=== PATIENT | female | born 1985 | race Caucasian/White ===

== ENCOUNTER 2017-01-23 13:41 | Emergency (ER) | payer SELFPAY ==
[~2017-01-23] VITALS: Ht 172.7 cm; Wt 81.7 kg
[~2017-01-23 13:41] MED LIST: ACHD5005 PO; ALBU17AE3 IH; ALBU8.5H2 IH; AZIT-21 PO; BENZ56AE TP; CEPH500C PO; CLIN-62 PO; CLIN300C3 PO; CODE-54 PO; CYCL10TA9 PO; DCS100C PO; FAMO20TA5 PO; FRS325T PO; HYDR1TAB PO; Ibuprofen PO; METH4TAB PO; NAPR-243 PO; ORPH100T PO; OXYC-12 PO; PRD20T PO; PREN-93 PO; PREN1TAB39 PO; RANI75TA30 PO; SULF-222 PO; TOPI50TA20; TRAM1TAB7 PO; TRAM50TA2 PO
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
[2017-01-23 14:00] LABS: MEAN PLATELET VOLUME 10.5 FL (7.4-10.4); RED BLOOD COUNT 4.32 10^6/uL (4.35-5.85); RED CELL DISTRIBUTION WIDTH 12.9 % (10.0-14.5)
[2017-01-23] MEDS ORDERED: CATHETER FLUSH 10 ML SYR IV PRN (14:00)
[2017-01-23] MEDS ORDERED: IOHEXOL 350 MG/ML 100 ML (OMNIPAQUE 350) VIAL IV ONE (14:00)
[2017-01-23] MEDS ORDERED: NS 100 ML (IVPB) BAG IV ONE (14:00)
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
[2017-01-23 14:13] LABS: ALANINE AMINOTRANSFERASE 14 U/L (0-55); ALBUMIN 3.9 GM/DL (3.2-4.5); ALCOHOL 11 MG/DL (<10); ANION GAP 8 MMOL/L (5-14); ASPARTATE AMINO TRANSFERASE 19 U/L (5-34); BILIRUBIN,DIRECT 0.1 MG/DL (0.0-0.3); BILIRUBIN,INDIRECT 0.1 MG/DL; BILIRUBIN,TOTAL 0.2 MG/DL (0.1-1.0); BLOOD UREA NITROGEN 9 MG/DL (7-18); BUN/CREATININE RATIO 12; CALCIUM 9.1 MG/DL (8.5-10.1); CARBON DIOXIDE 26 MMOL/L (21-32); CHLORIDE 105 MMOL/L (98-107); CREATININE SERUM 0.77 MG/DL (0.60-1.30); GFR ESTIMATED > 60; GLUCOSE 95 MG/DL (70-105); POTASSIUM 3.7 MMOL/L (3.6-5.0); SODIUM 139 MMOL/L (135-145); TOTAL PROTEIN 6.9 GM/DL (6.4-8.2)
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
[2017-01-23] MEDS ORDERED: fentaNYL INJECTION 100 MCG/2 ML AMP IVP STA (15:20)
[2017-01-23] MEDS ORDERED: KETOROLAC 30 MG/ML VIAL IVP STA (15:20)
[2017-01-23 15:49] LABS: BILIRUBIN,URINE NEGATIVE (NEGATIVE); KETONES,URINE NEGATIVE (NEGATIVE); LEUKOCYTE ESTERASE ,URINE 2+ (NEGATIVE); NITRITE,URINE NEGATIVE (NEGATIVE); PH,URINE 8 (5-9); PROTEIN,URINE NEGATIVE (NEGATIVE); UROBILINOGEN,URINE NORMAL (NORMAL)
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
[2017-01-23 15:57] LABS: SQUAMOUS EPITHELIAL CELL,UR 0-2 /HPF
[2017-01-23] MEDS ORDERED: HYDR-3816 PO (16:07)
[2017-01-23] MEDS ORDERED: CYCL10TA9 PO (16:07)
[2017-01-23 16:40] VITALS: BP 136/90
== END 2017-01-23 16:40 | disposition home or self-care (01) ==
LOC: EDUNIT# 13:43 → ER 13:44
DX: S06.0X1A Concussion with loss of consciousness of 30 minutes or less, initial encounter (principal); S16.1XXA Strain of muscle, fascia and tendon at neck level, initial encounter; J45.909 Unspecified asthma, uncomplicated; G40.909 Epilepsy, unspecified, not intractable, without status epilepticus; F17.210 Nicotine dependence, cigarettes, uncomplicated; Z82.49 Family history of ischemic heart disease and other diseases of the circulatory system; V48.5XXA Car driver injured in noncollision transport accident in traffic accident, initial encounter
CPT/HCPCS: 36415; 70450; 71010; 71260; 72125; 72128; 72131; 72170; 74177; 80048; 80076; 80320; 81000; 84703; 85027; 86850; 86900; 86901; 93041

== ENCOUNTER 2018-09-04 07:21 | Day surgery (SDC) | payer MEDICAID, OTHER ==
[2018-09-04] VITALS (12 sets, daily range): BP systolic 96–119; BP diastolic 43–76
[~2018-09-04] VITALS: Ht 172.7 cm; Wt 99.8 kg
[~2018-09-04 07:21] MED LIST changes: +HYDR-34 PO
--- OUTSIDE RECORDS SUMMARY | 2018-09-04 07:24 | XMS REPORT | Clinical Summary ---
Author Author [facility] Organization [facility] Address Unknown Phone Unavailable Care Team Providers Care [employer] Instructor Name Role Phone PCP Unavailable Allergies Not on File Current Medications Not on file Active Problems Not on file Social History Tobacco Use Types Packs/Day Years Used Date Never Assessed Sex Assigned at Date Recorded Not on file Last Filed Vital Signs Not on file Plan of Treatment Not on file Results Not on filefrom Last 3 Months
--- OUTSIDE RECORDS SUMMARY | 2018-09-04 07:25 | XMS REPORT ---
Author Author SIOMARA HOLGUIN [facility] Address [address] [place] [address] Care Team Providers Care Event Executive Name Role Phone SIOMARA HOLGUIN Unavailable PROBLEMS Type Condition ICD9-CM Code SZV02-IE Code Onset Dates Condition Status SNOMED Code Problem Other chronic pain G89.29 Active 52550891 Problem Pain in right knee M25.561 Active 29977260 ALLERGIES Substance Reaction Event Type Date Status Penicillin V Potassium anaphylaxis Drug Allergy Mar, Active ENCOUNTERS Encounter Location Date Diagnosis [facility] [id number] [place] [phone] Mar, [facility] [id number] [place] [phone] Mar, Cough R05 and Pneumonia J18.9 [facility] [address] [id number] [place] [address] Feb, [facility] [id number] [place] [phone] Feb, [facility] [address], [place] [address] Feb, Right knee pain, unspecified chronicity M25.561 [facility] [address] [id number] [place] [address] Feb, Pain in right knee M25.[id number] [place] [id number] Nov, Visit for TB skin test Z11.1 and Screening for tuberculosis Z11.1 [facility] [id number] [id number] Oct, [facility] [id number] [address] August, Gastroenteritis K52.9 [facility] [id number] [place] [phone] Jun, Pneumonia of right upper lobe due to infectious organism J18.1 [facility] [id number] [place] [address] Jun, Bronchitis J40 [facility] [id number] [place] [phone] May, Sore throat J02.9 [facility] [id number] [place] [id number] Mar, LUQ abdominal pain R10.12 ; Nausea R11.0 and H. pylori infection A04.8 [facility] [id number] [place] [phone] 14 Jul, 2014 [facility] [id number] [place] [phone] Jul, [facility] [id number] [place] [phone] Apr, [facility] [id number] [place] [phone] Apr, [facility] [id number] [place] [phone] Apr, [facility] [id number] [place] [phone] Apr, [facility] [id number] [id number] Mar, [facility] [id number] [place] [phone] Mar, [facility] [id number] [place] [phone] Mar, [facility] [id number] [place] [phone] Mar, [facility] [id number] [address] Feb, [facility] [address], [place] [address] Feb, [facility] [id number] [address] Feb, [id number] [id number] Feb, [facility] [id number], [place] [address] Jan, [facility] [address], [place] [address] Jan, [facility] [address] [place] [address] Jan, [facility] [address], [place] [address] Jan, [facility] [id number] [address] Nov, [facility] [address], [place] [address] Nov, [facility] [id number] [address] Jul, [facility] [id number], [place] [address] Jul, [facility] [id number], [place] [address] Mar, [facility] [address], [place] [address] Jul, IMMUNIZATIONS No Known Immunizations SOCIAL HISTORY Never Assessed REASON FOR VISIT Cold symptoms x1 month; cough, chest cold; had double pneumonia 05/2017, so brianne rned about these symptoms - VALDEZ Mccall PLAN OF CARE Activity Details Follow Up if not improving with PCP or reg follow up Reason: VITAL SIGNS Height 69 in 2018-03-17 Weight 252.4 lbs 2018-03-17 Temperature 97.7 degrees Fahrenheit 2018-03-17 Heart Rate 84 bpm 2018-03-17 Respiratory Rate 18 2018-03-17 Oximetry on room air:97 % 2018-03-17 BMI 37.27 kg/m2 2018-03-17 Blood pressure systolic 138 mmHg 2018-03-17 Blood pressure diastolic 90 mmHg 2018-03-17 MEDICATIONS Medication Instructions Dosage Frequency Start Date End Date Duration Status Tylenol 325 MG Orally every 4 hrs 1 tablet as needed 4h Active PredniSONE 20 MG Orally Once a day 2 tablet 24h Mar, 5 days Active Levaquin 750 MG Orally Once a day 1 tablet 24h Mar, 10 day(s) Active Albuterol Sulfate HFA 108 (90 Base) MCG/ACT Inhalation every 4-6 hours 2 puffs as needed 30 days Active Ibuprofen 200 MG Orally Three times a day 1 tablet with food or milk as needed 8h Active RESULTS Name Result Date Reference Range Xray : Chest 2 View (IN HOUSE) 2018-03-17 PROCEDURES Procedure Date Ordered Result Body Site X-RAY EXAM CHEST 2 VIEWS Mar 17, 2018 INSTRUCTIONS MEDICATIONS ADMINISTERED No Known Medications MEDICAL (GENERAL) HISTORY Type Description Date Medical History asthma Medical History Bipolar disorder, unspecified Medical History Unspecified epilepsy without mention of intractable epilepsy Surgical History tubal ligation Surgical History diagnostic lap Hospitalization History pneumonia 05/2017
--- OUTSIDE RECORDS SUMMARY | 2018-09-04 07:25 | XMS REPORT ---
Author Author SIOMARA HOLGUIN [facility] Address [address] [place] [address] Care Team Providers Care Manpower Development Manager Name Role Phone SIOMARA HOLGUIN Unavailable PROBLEMS Type Condition ICD9-CM Code GBC51-TV Code Onset Dates Condition Status SNOMED Code Problem Other chronic pain G89.29 Active 05406554 Problem Pain in right knee M25.561 Active 90988381 ALLERGIES Substance Reaction Event Type Date Status Penicillin V Potassium anaphylaxis Drug Allergy Mar, Active ENCOUNTERS Encounter Location Date Diagnosis [facility] [id number] [place] [address] Mar, [facility] [id number] [place] [address] Mar, Cough R05 [facility] [id number] [place] [address] 04 Mar, 2018 Cough R05 and Pneumonia J18.9 [facility] [address] [id number] [place] [address] Feb, [facility] [id number] [place] [address] 15 Feb, 2018 [facility] [id number] [place] [address] 09 Feb, 2018 Right knee pain, unspecified chronicity M25.561 [facility] [address] [id number] [place] [address] 07 Feb, 2018 Pain in right knee M25.561 [id number] [id number] Nov, Visit for TB skin test Z11.1 and Screening for tuberculosis Z11.1 [address] [id number] [id number] Oct, [facility] [id number] [place] [address] August, Gastroenteritis K52.9 [facility] [address] [address] Jun, Pneumonia of right upper lobe due to infectious organism J18.1 [facility] [address] [address] Jun, Bronchitis J40 [facility] [id number] [place] [address] May, Sore throat J02.9 [facility] [id number], [place] [id number] Mar, LUQ abdominal pain R10.12 ; Nausea R11.0 and H. pylori infection A04.8 [facility] [address] [address] Jul, [facility] [id number] [address] Jul, [facility] [id number] [address] Apr, [facility] [id number] [address] Apr, [facility] [id number] [address] Apr, [facility] [address] [address] Apr, [facility] [id number], [place] [id number] Mar, [facility] [id number] [address] Mar, [facility] [address] [id number] [address] Mar, [facility] [address] [facility] [id number] [place] [address] Mar, [facility] [address] [id number] [address] Feb, [facility] [address] [id number] [address] Feb, [facility] [address] [id number] [address] Feb, [facility] [address] [id number][place] [id number] Feb, [facility] [id number] [address] Jan, [facility] [id number] [address] Jan, [facility] [id number] [address] Jan, [facility] [address] [id number] [address] Jan, [facility] [address] [address] Nov, [facility] [address] [id number] [address] Nov, [facility] [address] [id number] [address] Jul, [facility] [address] [facility] [id number] [address] Jul, [facility] [address] [id number] [address] Mar, [facility] [address] [id number] [address] Jul, IMMUNIZATIONS No Known Immunizations SOCIAL HISTORY Never Assessed REASON FOR VISIT Shortness of breath/cough; was diagnosed with pneumonia 03/17/18, pt is out of ab x and steriods but doesn't feel better - VALDEZ Mccall PLAN OF CARE Activity Details Follow Up prn Reason: VITAL SIGNS Height 69 in 2018-03-25 Weight 249.2 lbs 2018-03-25 Temperature 97.3 degrees Fahrenheit 2018-03-25 Heart Rate 96 bpm 2018-03-25 Respiratory Rate 28 2018-03-25 Oximetry on room air:98 % 2018-03-25 BMI 36.80 kg/m2 2018-03-25 Blood pressure systolic 110 mmHg 2018-03-25 Blood pressure diastolic 70 mmHg 2018-03-25 MEDICATIONS Medication Instructions Dosage Frequency Start Date End Date Duration Status Tessalon Perles 100 MG Orally Three times a day 1 capsule as needed 8h Mar, 5 days Active Ibuprofen 200 MG Orally Three times a day 1 tablet with food or milk as needed 8h Active Albuterol Sulfate HFA 108 (90 Base) MCG/ACT Inhalation every 4-6 hours 2 puffs as needed 30 days Active Tylenol 325 MG Orally every 4 hrs 1 tablet as needed 4h Active RESULTS No Results PROCEDURES No Known procedures INSTRUCTIONS MEDICATIONS ADMINISTERED No Known Medications MEDICAL (GENERAL) HISTORY Type Description Date Medical History asthma Medical History Bipolar disorder, unspecified Medical History Unspecified epilepsy without mention of intractable epilepsy Surgical History tubal ligation Surgical History diagnostic lap Hospitalization History pneumonia 05/2017
--- OUTSIDE RECORDS SUMMARY | 2018-09-04 07:25 | XMS REPORT ---
Author Author CARLIN BARRIOS [facility] Address [address] [place] [address] Care Team Providers Care Robotics Systems Engineer Name Role Phone TOMCLEMENTECARLIN MAZARIEGOS Unavailable PROBLEMS Unknown Problems ALLERGIES No Information ENCOUNTERS Encounter Location Date Diagnosis [facility] [id number] [place] [id number] Nov, Visit for TB skin test Z11.1 and Screening for tuberculosis Z11.1 [facility] [id number] [place] [id number] Oct, [facility] [address] [address] August, Gastroenteritis K52.9 [facility] [address] [place] [address] Jun, Pneumonia of right upper lobe due to infectious organism J18.1 [facility] [address] [place] [id number] [place] [address] Jun, Bronchitis J40 [facility] [address] [place] [id number] [place] [address] May, Sore throat J02.9 [facility] [id number] [place] [id number] Mar, LUQ abdominal pain R10.12 ; Nausea R11.0 and H. pylori infection A04.8 [facility] [address] [address] Jul, [facility] [address] [address] Jul, [facility] [address] [place] [address] Apr, [facility] [address] [facility] [id number], [place] [address] Apr, [facility] [place] [facility] [address] [facility] [id number], [place] [address] Apr, [facility] [address] [facility] [id number], [place] [address] Apr, [facility] [address] [facility] [id number][place] [id number] Mar, [facility] [place] [facility] [address] [facility] [id number], [place] [address] Mar, [facility] [place] [facility] [address] [facility] [id number], [place] [address] Mar, [facility] [place] [facility] [address] [id number], [place] [address] Mar, [facility] [place] [facility] [address] [facility] [id number], [place] [address] Feb, [facility] [place] [facility] [address] [id number], [place] [address] Feb, [facility] [place] [facility] [address] [facility] [id number], [place] [address] Feb, [facility] [address] [id number][place] [address] Feb, [facility] [place] [facility] [address] [facility] [id number], [place] [address] Jan, [facility] [place] [facility] [address] [id number], [place] [address] Jan, [facility] [place] [facility] [address] [facility] [id number], [place] [address] Jan, [facility] [place] [facility] [address] [facility] [id number], [place] [address] Jan, [facility] [place] [facility] [address] [facility] [id number], [place] [address] Nov, [facility] [address] [id number], [place] [address] Nov, [facility] [address]00565100[place], [place] [address] Jul, [facility] [address] [id number], [place] [address] Jul, [facility] [address] [id number], [place] [address] Mar, [facility] [address] [id number], [place] [address] Jul, IMMUNIZATIONS No Known Immunizations SOCIAL HISTORY Never Assessed REASON FOR VISIT Phone Call--ADaviedRN PLAN OF CARE VITAL SIGNS MEDICATIONS Unknown Medications RESULTS No Results PROCEDURES No Known procedures INSTRUCTIONS MEDICATIONS ADMINISTERED No Known Medications MEDICAL (GENERAL) HISTORY Type Description Date Medical History asthma Medical History Bipolar disorder, unspecified Medical History Unspecified epilepsy without mention of intractable epilepsy Surgical History tubal ligation Surgical History diagnostic lap Hospitalization History pneumonia
--- OUTSIDE RECORDS SUMMARY | 2018-09-04 07:25 | XMS REPORT ---
Author Author Migration, Doctor Organization [facility] Address Unknown Phone Unavailable Care Team Providers Care Inlayer Silver Name Role Phone Migration, Doctor Unavailable Unavailable PROBLEMS Type Condition ICD9-CM Code [id number] Code Onset Dates Condition Status SNOMED Code Problem Pain in right knee M25.561 Active 34486981 ALLERGIES No Information ENCOUNTERS Encounter Location Date Diagnosis [facility] [id number] [place] [address] Apr, Allergic conjunctivitis of both eyes H10.13 [id number] [place] [address] Apr, Nausea & vomiting R11.2 [id number] [place] [address] Apr, [id number] [place] [address] Apr, Left upper quadrant pain R10.12 and Near syncope R55 [facility] [id number] [place] [address] Mar, Cough R05 [facility] [id number] [place] [address] 04 Mar, 2018 Cough R05 and Pneumonia J18.9 [facility] [address] [id number] [place] [address] Feb, [id number] [place] [address] Feb, [facility] [address] [place] [address] 09 Feb, 2018 Right knee pain, unspecified chronicity M25.561 [facility] MADISYN [address] [id number] [place] [address] Feb, Pain in right knee M25.561 [facility] [id number], [place] [id number] Nov, Visit for TB skin test Z11.1 and Screening for tuberculosis Z11.1 [facility] [id number] [id number] Oct, [facility] [id number] [place] [address] August, Gastroenteritis K52.9 [facility] [id number] [place] [address] Jun, Pneumonia of right upper lobe due to infectious organism J18.1 [facility] [id number] [place] [address] Jun, Bronchitis J40 [facility] [address] [place] [address] [place] [address] May, Sore throat J02.9 [address] [id number] Mar, LUQ abdominal pain R10.12 ; Nausea R11.0 and H. pylori infection A04.8 [facility] [address] [place] [address] Jul, [facility] [id number] [place] [address] Jul, [facility] [id number] [place] [address] Apr, [facility] [id number] [place] [address] Apr, [facility] [id number] [place] [address] Apr, [facility] [id number] [place] [address] Apr, [address] [id number] [id number] 05 Mar, 2014 [facility] [place] [facility] [address] [id number] [place] [address] Mar, [facility] [place] [facility] [address] [facility] [id number] [place] [address] Mar, [facility] [place] [facility] [address] [facility] [id number] [place] [address] Mar, [facility] [place] [facility] [address] [facility] [id number] [place] [address] Feb, [facility] [place] [facility] [address] [id number] [place] [address] Feb, [facility] [place] [facility] [address] [facility] [id number] [place] [address] Feb, [facility] [address] W [facility] [id number][place] [id number] Feb, [facility] [place] [facility] [address] [id number] [address] Jan, [facility] [place] [facility] [address] [id number] [place] [address] Jan, [facility] [place] [facility] [address] [id number] [place] [address] Jan, [facility] [place] [facility] [address] [id number], [place] [address] Jan, [facility] [place] [facility] [address] [id number], [place] [address] Nov, [facility] [place] [facility] [address] [id number] [place] [address] Nov, [facility] [place] [facility] [address] [facility] [id number] [place] [address] Jul, [facility] [place] [facility] [address] [id number] [place] [address] Jul, [facility] [place] [facility] [address] [facility] [id number] [place] [address] Mar, [facility] [address] [facility] [id number] [place] [address] Jul, IMMUNIZATIONS No Known Immunizations SOCIAL HISTORY Never Assessed REASON FOR VISIT EMR-[facility] PLAN OF CARE VITAL SIGNS MEDICATIONS Unknown Medications RESULTS No Results PROCEDURES No Known procedures INSTRUCTIONS MEDICATIONS ADMINISTERED No Known Medications MEDICAL (GENERAL) HISTORY Type Description Date Medical History asthma Medical History Bipolar disorder, unspecified Medical History Unspecified epilepsy without mention of intractable epilepsy Surgical History tubal ligation Surgical History diagnostic lap Hospitalization History pneumonia 05/2017
--- OUTSIDE RECORDS SUMMARY | 2018-09-04 07:25 | XMS REPORT ---
Author Author MADINA KINGSTON [facility] Address [address] [place] [address] Care Team Providers Care Newspaper Photojournalist Name Role Phone MADINA KINGSTON Unavailable PROBLEMS Type Condition ICD9-CM Code [id number] Code Onset Dates Condition Status SNOMED Code Problem Other chronic pain G89.29 Active 15544102 Problem Pain in right knee M25.561 Active 94057818 ALLERGIES Substance Reaction Event Type Date Status Penicillin V Potassium anaphylaxis Drug Allergy Feb, Active ENCOUNTERS Encounter Location Date Diagnosis [facility] [address] [id number] [place] [address] Feb, [facility] [address]00565100[place], [place] [address] Feb, [facility] [address] [place] [id number] [place] [address] Feb, Right knee pain, unspecified chronicity M25.561 [facility] [address] [id number] [place] [address] Feb, Pain in right knee M25.561 [facility] [address] [id number] [address] Nov, Visit for TB skin test Z11.1 and Screening for tuberculosis Z11.1 [facility] [address] [facility] [id number][place] [address] Oct, [facility] [id number] [place] [address] August, Gastroenteritis K52.9 [facility] [address] [place] [address], [place] [address] Jun, Pneumonia of right upper lobe due to infectious organism J18.1 [facility] [address]00565100[place], [place] [address] Jun, Bronchitis J40 [facility] [address]00565100[place], [place] [address] 07 May, 2017 Sore throat J02.9 [facility] [address] [id number][place] [address] 05 Mar, 2017 LUQ abdominal pain R10.12 ; Nausea R11.0 and H. pylori infection A04.8 [facility] [address]00565100[place], [place] [address] 14 Jul, 2014 [facility] [address] [place] [address] Jul, [facility] [address]00565100[place], [place] [address] Apr, [facility] [id number] [place] [address] Apr, [facility] [address]00565100[place], [place] [address] Apr, [facility] [address]00565100[place], [place] [address] Apr, [facility] [address] [id number] [address] Mar, [facility] [address]00565100[place], [place] [address] Mar, [facility] [address]00565100[place], [place] [address] Mar, [facility] [address]00565100[place], [place] [address] Mar, [facility] [address]00565100[place], [place] [address] Feb, [facility] [address]00565100[place], [place] [address] Feb, [facility] [address] [id number], [place] [address] Feb, [facility] [address] [id number], [place] [address] Feb, [facility] [address]00565100[place], [place] [address] Jan, [facility] [address] [id number], [place] [address] Jan, [facility] [address]00565100[place], [place] [address] Jan, [facility] [address]00565100[place], [place] [address] Jan, [facility] [address]00565100[place], [place] [address] Nov, [facility] [address]65100[place], [place] [address] Nov, [facility] [id number] [place] [address] Jul, [facility] [id number] [place] [address] Jul, [facility] [id number] [address] Mar, [facility] [id number] [address] Jul, IMMUNIZATIONS No Known Immunizations SOCIAL HISTORY Never Assessed REASON FOR VISIT Right knee pain - VALDEZ Mccall PLAN OF CARE Activity Details Follow Up prn Reason: VITAL SIGNS Height 69 in 2018-02-20 Weight 247.6 lbs 2018-02-20 Temperature 98.0 degrees Fahrenheit 2018-02-20 Heart Rate 92 bpm 2018-02-20 Respiratory Rate 18 2018-02-20 BMI 36.56 kg/m2 2018-02-20 Blood pressure systolic 100 mmHg 2018-02-20 Blood pressure diastolic 70 mmHg 2018-02-20 MEDICATIONS Medication Instructions Dosage Frequency Start Date End Date Duration Status Ibuprofen 200 MG Orally Three times a day 1 tablet with food or milk as needed 8h Active RESULTS No Results PROCEDURES No Known procedures INSTRUCTIONS MEDICATIONS ADMINISTERED No Known Medications MEDICAL (GENERAL) HISTORY Type Description Date Medical History asthma Medical History Bipolar disorder, unspecified Medical History Unspecified epilepsy without mention of intractable epilepsy Surgical History tubal ligation Surgical History diagnostic lap Hospitalization History pneumonia
--- OUTSIDE RECORDS SUMMARY | 2018-09-04 07:25 | XMS REPORT ---
Author Author MADINA KINGSTON [facility] Address [address] [place] [address] Care Team Providers Care It Technical Specialist Name Role Phone MADINA KINGSTON Unavailable PROBLEMS Unknown Problems ALLERGIES No Information ENCOUNTERS Encounter Location Date Diagnosis [facility] [id number] [place] [address] [id number] Nov, Visit for TB skin test Z11.1 and Screening for tuberculosis Z11.1 [facility] [id number] [place] [id number] Oct, [facility] [address] [place] [id number] [place] [address] August, Gastroenteritis K52.9 [facility] [address] [place] [id number] [place] [address] Jun, Pneumonia of right upper lobe due to infectious organism J18.1 [facility] [address] [place] [id number] [place] [address] Jun, Bronchitis J40 [facility] [address] [place] [id number] [place] [address] May, Sore throat J02.9 [facility] [id number] [place] [address] [id number] Mar, LUQ abdominal pain R10.12 ; Nausea R11.0 and H. pylori infection A04.8 [facility] [address] [place] [id number] [place] [address] Jul, [facility] [id number] [place] [address] Jul, [facility] [address] [place] [address] Apr, [facility] [place] [facility] [address] [id number], [place] [address] Apr, [facility] [place] [facility] [address] [facility] [id number], [place] [address] Apr, [facility] [place] [facility] [address] [facility] [id number], [place] [address] Apr, [facility] [place] [address] [facility] [id number] [id number] Mar, [facility] [place] [facility] [address] [id number], [place] [address] Mar, [facility] [place] [facility] [address] [facility] [id number], [place] [address] Mar, [facility] [place] [facility] [address] [facility] [id number], [place] [address] Mar, [facility] [place] [facility] [address] [facility] [id number], [place] [address] Feb, [facility] [place] [facility] [address] [facility] [id number], [place] [address] Feb, [facility] [place] [facility] [address] [facility] [id number], [place] [address] Feb, [facility] [place] 120 [facility] [id number] [id number] Feb, [facility] [place] [facility] [address] [facility] [id number], [place] [address] Jan, [facility] [place] [facility] [address] [id number], [place] [address] Jan, [facility] [place] [facility] [address] [facility] [id number], [place] [address] Jan, [facility] [place] [facility] [address] [facility] [id number], [place] [address] Jan, [facility] [place] [facility] [address] [id number], [place] [address] Nov, [facility] [address] [id number], [place] [address] Nov, [facility] [address] [id number], [place] [address] Jul, [facility] [address] [id number], [place] [address] Jul, [facility] [address] [id number], [place] [address] Mar, [facility] [address] [id number], [place] [address] Jul, IMMUNIZATIONS No Known Immunizations SOCIAL HISTORY Never Assessed REASON FOR VISIT TB Skin Test Abdulkadir ARREDONDO PLAN OF CARE Activity Details Follow Up 48-72 hours Reason: VITAL SIGNS MEDICATIONS Unknown Medications RESULTS No Results PROCEDURES Procedure Date Ordered Result Body Site TB INTRADERMAL TEST Dec 01, 2017 LAB NOT BILLED BY [facility] Dec 01, 2017 INSTRUCTIONS MEDICATIONS ADMINISTERED No Known Medications MEDICAL (GENERAL) HISTORY Type Description Date Medical History asthma Medical History Bipolar disorder, unspecified Medical History Unspecified epilepsy without mention of intractable epilepsy Surgical History tubal ligation Surgical History diagnostic lap Hospitalization History pneumonia
--- OUTSIDE RECORDS SUMMARY | 2018-09-04 07:25 | XMS REPORT ---
Author Author Migration, Doctor Organization [facility] Address Unknown Phone Unavailable Care Team Providers Care Traffic Control Operator Name Role Phone Migration, Doctor Unavailable Unavailable PROBLEMS Type Condition ICD9-CM Code MEH97-LC Code Onset Dates Condition Status SNOMED Code Problem Pain in right knee M25.561 Active 77304014 ALLERGIES No Information ENCOUNTERS Encounter Location Date Diagnosis [facility] [place] [id number] [place] [address] Apr, Allergic conjunctivitis of both eyes H10.13 [place] [id number] [place] [address] Apr, Nausea & vomiting R11.2 [place] [id number] [place] [address] Apr, [place] [id number] [place] [address] Apr, Left upper quadrant pain R10.12 and Near syncope R55 [facility] [place] [id number] [place] [address] Mar, Cough R05 [facility] [place] [id number] [place] [address] 04 Mar, 2018 Cough R05 and Pneumonia J18.9 [facility] [address] [id number] [place] [address] Feb, [place] [id number] [place] [address] Feb, [facility] [place] [id number] [place] [address] 09 Feb, 2018 Right knee pain, unspecified chronicity M25.561 [facility] MADIS[facility] [address] [id number] [place] [address] Feb, Pain in right knee M25.561 [facility] [id number] [id number] Nov, Visit for TB skin test Z11.1 and Screening for tuberculosis Z11.1 [facility] [id number] [place] [id number] Oct, [facility] [id number] [place] [address] August, Gastroenteritis K52.9 [facility] [id number] [place] [address] Jun, Pneumonia of right upper lobe due to infectious organism J18.1 [facility] [id number] [place] [address] Jun, Bronchitis J40 [facility] [address] [place] [id number] [place] [address] May, Sore throat J02.9 [address]00565100[place] [id number] Mar, LUQ abdominal pain R10.12 ; Nausea R11.0 and H. pylori infection A04.8 [facility] [id number] [place] [address] Jul, [facility] [id number] [place] [address] Jul, [facility] [id number] [place] [address] Apr, [facility] [id number] [place] [address] Apr, [facility] [id number] [place] [address] Apr, [facility] [id number] [place] [address] Apr, [place] [id number] [id number] 05 Mar, 2014 [facility] [place] [facility] [address] [id number] [place] [address] Mar, [facility] [place] [facility] [address] [facility] [id number] [place] [address] Mar, [facility] [place] [facility] [address] [facility] [id number] [place] [address] Mar, [facility] [place] [facility] [address] [facility] [id number] [place] [address] Feb, [facility] [place] [facility] [address] [id number] [place] [address] Feb, [facility] [place] [facility] [address] [facility] [id number] [place] [address] Feb, [facility] [address] [facility] [id number] [place] [id number] Feb, [facility] [place] [facility] [address] [id number], [place] [address] Jan, [facility] [place] [facility] [address] [id number] [place] [address] Jan, [facility] [place] [facility] [address] [id number] [place] [address] Jan, [facility] [place] [facility] [address] [id number], [place] [address] Jan, [facility] [place] [facility] [address] [id number], [place] [address] Nov, [facility] [place] [facility] [address] [id number] [place] [address] Nov, [facility] [place] [facility] [address] [facility] [id number] [place] [address] Jul, [facility] [place] [facility] [address] [id number] [place] [address] Jul, [facility] [place] [facility] [address] [facility] [id number] [place] [address] Mar, [facility] [address] [facility] [id number] [place] [address] Jul, IMMUNIZATIONS No Known Immunizations SOCIAL HISTORY Never Assessed REASON FOR VISIT EMR-[facility] PLAN OF CARE VITAL SIGNS MEDICATIONS Medication Instructions Dosage Frequency Start Date End Date Duration Status Wellbutrin 75 mg 1 tablet by Oral route 2 times per day Feb, Active Lamictal 25 mg 1 Tablet(s) by Oral route 1 time per day take at hs Feb, Active Zithromax 250 mg 2 Tablet for 6 days Feb, Active Albuterol Sulfate 90 mcg/actuation Feb, Active PredniSONE 20 mg 2 Tablet Feb, Active Ibuprofen 800 mg take 1 tablet (800 mg) by oral route 3 times per day with food Feb, Active RESULTS No Results PROCEDURES No Known procedures INSTRUCTIONS MEDICATIONS ADMINISTERED No Known Medications MEDICAL (GENERAL) HISTORY Type Description Date Medical History asthma Medical History Bipolar disorder, unspecified Medical History Unspecified epilepsy without mention of intractable epilepsy Surgical History tubal ligation Surgical History diagnostic lap Hospitalization History pneumonia 05/2017
--- OUTSIDE RECORDS SUMMARY | 2018-09-04 07:25 | XMS REPORT ---
Author Author PEDRO PABLO FORREST [facility] Address [address] [place] [address] Care Team Providers Care Marketing Analytics Specialist Name Role Phone PEDRO PABLO FORREST Unavailable PROBLEMS Type Condition ICD9-CM Code EJO26-DO Code Onset Dates Condition Status SNOMED Code Problem Other chronic pain G89.29 Active 26488423 Problem Pain in right knee M25.561 Active [id number] ALLERGIES Substance Reaction Event Type Date Status Penicillin V Potassium anaphylaxis Drug Allergy Feb, Active ENCOUNTERS Encounter Location Date Diagnosis [facility] [id number] [place] [address] Feb, [facility] [id number] [place] [address] Feb, Right knee pain, unspecified chronicity M25.561 [facility] [place] [address] [id number] [place] [address] Feb, Pain in right knee M25.561 [facility] [address] [place] [id number] Nov, Visit for TB skin test Z11.1 and Screening for tuberculosis Z11.1 [facility] [id number] [place] [id number] Oct, [facility] [id number] [place] [address] August, Gastroenteritis K52.9 [facility] [address] [place] [id number] [place] [address] Jun, Pneumonia of right upper lobe due to infectious organism J18.1 [facility] [address] [place] [id number] [place] [address] Jun, Bronchitis J40 [facility] [address]00565100[place], [place] [address] 07 May, 2017 Sore throat J02.[address] [place] [id number] Mar, LUQ abdominal pain R10.12 ; Nausea R11.0 and H. pylori infection A04.8 [facility] [address]00565100[place], [place] [address] [address], [address] [facility] [address] [place] [address] Jul, [facility] [id number] [place] [address] Apr, [facility] [id number] [place] [address] Apr, [facility] [id number] [place] [address] Apr, [facility] [address]00565100[place], [place] [address] Apr, [facility] [address]00565100[place] [id number] Mar, [facility] [address]00565[address] [address] Mar, [facility] [address]00565100[place] [address] Mar, [facility] [address]00565100[place] [address] Mar, [facility] [address]00565100[place] [address] Feb, [facility] [address] [id number], [place] [address] Feb, [facility] [address]00565100[place], [place] [address] Feb, [facility] [address] [id number] [address] Feb, [facility] [address] [id number], [place] [address] Jan, [facility] [address] [id number], [place] [address] Jan, [facility] [address] [id number] [address] Jan, [facility] [address]00565100[place] [address] Jan, [facility] [address]00565100[place] [address] Nov, [facility] [address]00565100[place] [address] Nov, [facility] [address]00565100[place] [address] Jul, [facility] [address] [id number] [address] Jul, [facility] [address]00565100[place], [place] [address] Mar, [facility] [address] [id number], [place] [address] Jul, IMMUNIZATIONS No Known Immunizations SOCIAL HISTORY Never Assessed REASON FOR VISIT knee pain-Patient states she's had right knee pain x6 months, swelling for 4 mon ths, states it has become worse and feels she needs something done about it. Sap Gatherer ck RN PLAN OF CARE Activity Details Follow Up prn, pending DI Reason: Pending Test Xray : Knee, Right VITAL SIGNS Height 69 in 2018-02-18 Weight 246 lbs 2018-02-18 Temperature 98.4 degrees Fahrenheit 2018-02-18 Heart Rate 104 bpm 2018-02-18 Respiratory Rate 16 2018-02-18 Oximetry 98 % 2018-02-18 BMI 36.32 kg/m2 2018-02-18 Blood pressure systolic 124 mmHg 2018-02-18 Blood pressure diastolic 80 mmHg 2018-02-18 MEDICATIONS Medication Instructions Dosage Frequency Start Date [...]
--- OUTSIDE RECORDS SUMMARY | 2018-09-04 07:26 | XMS REPORT ---
Author Author JAKE BUTCHER [facility] Address [address] [place] [address] Care Team Providers Care Commercial Manager Name Role Phone JAKE BUTCHER Unavailable PROBLEMS Unknown Problems ALLERGIES Substance Reaction Event Type Date Status Penicillin V Potassium anaphylaxis Drug Allergy May, Active ENCOUNTERS Encounter Location Date Diagnosis [facility] [id number] [place] [address] August, Gastroenteritis K52.9 [facility] [id number] [place] [address] Jun, Pneumonia of right upper lobe due to infectious organism J18.1 [facility] [id number] [place] [address] Jun, Bronchitis J40 [facility] [address] [place] [id number] [place] [address] May, Sore throat J02.9 [facility] [id number] [place] [id number] Mar, LUQ abdominal pain R10.12 ; Nausea R11.0 and H. pylori infection A04.8 [facility] [address]00565100[place] [address] Jul, [facility] [id number] [place] [address] Jul, [facility] [id number] [place] [address] Apr, [facility] [id number] [place] [address] Apr, [facility] [id number] [place] [address] Apr, [facility] [place] [facility] [address] [id number] [place] [address] Apr, [facility] [address] [facility] [id number] [place] [id number] Mar, [facility] [place] [facility] [address] [facility] [id number] [place] [address] Mar, [facility] [place] [facility] [address] [id number] [place] [address] Mar, [facility] [place] [facility] [address] [id number] [place] [address] Mar, [facility] [place] [facility] [address] [facility] [id number] [place] [address] Feb, [facility] [place] [facility] [address] [facility] [id number] [place] [address] Feb, [facility] [place] [facility] [address] [id number] [place] [address] Feb, [facility] [address] [facility] [id number] [place] [id number] Feb, [facility] [place] [facility] [address] [facility] [id number] [place] [address] Jan, [facility] [place] [facility] [address] [facility] [id number] [place] [address] Jan, [facility] [place] [facility] [address] [id number] [place] [address] Jan, [facility] [place] [facility] [address] [id number] [place] [address] Jan, [facility] [place] [facility] [address] [id number] [place] [address] Nov, [facility] [place] [facility] [address] [id number] [place] [address] Nov, [facility] [place] [facility] [address] [facility] [id number] [place] [address] Jul, [facility] [address] [facility] [id number] [place] [address] Jul, [facility] [address] [facility] [id number] [place] [address] Mar, [facility] [address] [facility] [id number] [place] [address] Jul, IMMUNIZATIONS No Known Immunizations SOCIAL HISTORY Never Assessed REASON FOR VISIT sore thorat, started 2 weeks ago. Progressively gotten worse. Reports unable to eat due to swelling and pain in throat. Woke this am with lump in throat on left side. Positive for chills. Taken ibuprofen for CBrumbackRN PLAN OF CARE Activity Details Follow Up prn Reason: VITAL SIGNS Height 69 in 2017-05-21 Weight 219.0 lbs 2017-05-21 Temperature 98.0 degrees Fahrenheit 2017-05-21 Heart Rate 88 bpm 2017-05-21 Respiratory Rate 18 2017-05-21 BMI 32.34 kg/m2 2017-05-21 Blood pressure systolic 110 mmHg 2017-05-21 Blood pressure diastolic 80 mmHg 2017-05-21 MEDICATIONS Medication Instructions Dosage Frequency Start Date End Date Duration Status Omeprazole 20 MG Orally twice a day 1 capsule 12h Mar, 30 days Not-Taking Ibuprofen 200 MG Orally Three times a day 1 tablet with food or milk as needed 8h Active Clindamycin HCl 300 MG Orally every 8 hrs 1 capsule 8h May, May, 10 days Active RESULTS Name Result Date Reference Range STREP A (IN HOUSE) 2017-05-21 STREP A negative Control + Lot # [id number] Exp date 03/13/18 PROCEDURES Procedure Date Ordered Result Body Site STREP A ASSAY W/OPTIC May 21, 2017 INSTRUCTIONS MEDICATIONS ADMINISTERED No Known Medications MEDICAL (GENERAL) HISTORY Type Description Date Medical History asthma Medical History Bipolar disorder, unspecified Medical History Unspecified epilepsy without mention of intractable epilepsy Surgical History tubal ligation Surgical History diagnostic lap Hospitalization History pneumonia
--- OUTSIDE RECORDS SUMMARY | 2018-09-04 07:26 | XMS REPORT ---
Author Author MYLES HARDEN [facility] Address [address] [place] [address] Care Team Providers Care Imaging System Administrator Name Role Phone MYLES HARDEN Unavailable PROBLEMS Unknown Problems ALLERGIES Substance Reaction Event Type Date Status Penicillin V Potassium anaphylaxis Drug Allergy Mar, Active ENCOUNTERS Encounter Location Date Diagnosis [facility] [address] [place] [id number] [place] [address] August, Gastroenteritis K52.9 [facility] [place] [id number] [place] [address] Jun, Pneumonia of right upper lobe due to infectious organism J18.1 [facility] [address] [place] [id number] [place] [address] Jun, Bronchitis J40 [facility] [place] [id number] [place] [address] May, Sore throat J02.9 [facility] [id number] [place] [id number] Mar, LUQ abdominal pain R10.12 ; Nausea R11.0 and H. pylori infection A04.8 [place] [id number] [place] [address] Jul, [place] [address] [place] [id number] [place] [address] Jul, [place] [address] [place] [id number] [place] [address] Apr, [place] [address] [place] [id number] [place] [address] Apr, [place] [address] [id number] [place] [address] Apr, [facility] [address] [id number] [place] [address] Apr, [facility] [address] [facility] [id number] [place] [id number] Mar, [facility] [address] [id number] [place] [address] Mar, [facility] [place] [facility] [address] [id number] [place] [address] Mar, [facility] [place] [facility] [address] [id number] [place] [address] Mar, [facility] [place] [facility] [address] [facility] [id number] [place] [address] Feb, [facility] [place] [facility] [address] [facility] [id number] [place] [address] Feb, [facility] [address] [id number] [place] [address] Feb, [facility] 120 [facility] [id number] [id number] Feb, [facility] [address] [facility] [id number] [place] [address] Jan, [facility] [place] [facility] [address] [id number] [place] [address] Jan, [facility] [place] [facility] [address] [id number] [address] Jan, [facility] [place] [facility] [address] [id number] [place] [address] Jan, [facility] [place] [facility] [address] [id number] [place] [address] Nov, [facility] [place] [facility] [address] [id number][place] [address] Nov, [facility] [address] [facility] [id number][place] [address] Jul, [facility] [address] [facility] [id number], [place] [address] Jul, [facility] [address] [facility] [id number][place] [address] Mar, [facility] [address] [facility] [id number][place] [address] Jul, IMMUNIZATIONS No Known Immunizations SOCIAL HISTORY Never Assessed REASON FOR VISIT left upper quad pain, starting 5 days ago Abdoul PLAN OF CARE Activity Details Follow Up 4 Week Reason:h pylori VITAL SIGNS Height 69 in 2017-03-18 Weight 207.8 lbs 2017-03-18 Temperature 97.3 degrees Fahrenheit 2017-03-18 Heart Rate 86 bpm 2017-03-18 Respiratory Rate 18 2017-03-18 BMI 30.68 kg/m2 2017-03-18 Blood pressure systolic 102 mmHg 2017-03-18 Blood pressure diastolic 68 mmHg 2017-03-18 MEDICATIONS Medication Instructions Dosage Frequency Start Date End Date Duration Status Clarithromycin 500 mg Orally every 12 hrs 1 tablet Mar, Mar, 14 days Active Omeprazole 20 MG Orally twice a day 1 capsule Mar, 30 days Active Metronidazole 500 mg Orally every 12 hrs 1 tablet h Mar, Mar, 14 days Active RESULTS Name Result Date Reference Range H PYLORI (IN HOUSE) 2017-03-18 H. PYLORI positive Control positive Lot # [id number] Exp date 08/29 PROCEDURES Procedure Date Ordered Result Body Site IMMUNOASSAY,INFECTIOUS AGENT Mar 18, 2017 INSTRUCTIONS MEDICATIONS ADMINISTERED No Known Medications MEDICAL (GENERAL) HISTORY Type Description Date Medical History asthma Medical History Bipolar disorder, unspecified Medical History Unspecified epilepsy without mention of intractable epilepsy Surgical History tubal ligation Surgical History diagnostic lap Hospitalization History pneumonia
--- OUTSIDE RECORDS SUMMARY | 2018-09-04 07:26 | XMS REPORT ---
Author Author SIOMARA HOLGUIN Organization [facility] Address [address] [place] [address] Care Team Providers Care Washer Cutter Name Role Phone SIOMARA HOLGUIN Unavailable PROBLEMS Unknown Problems ALLERGIES Substance Reaction Event Type Date Status Penicillin V Potassium anaphylaxis Drug Allergy August, Active ENCOUNTERS Encounter Location Date Diagnosis [facility] [address] [id number] [place] [id number] Oct, [facility] [address] [place] [id number] [place] [address] August, Gastroenteritis K52.9 [facility] [address] [place] [id number] [place] [address] Jun, Pneumonia of right upper lobe due to infectious organism J18.1 [facility] [address] [place] [id number] [place] [address] Jun, Bronchitis J40 [facility] [address] [place] [id number] [place] [address] May, Sore throat J02.9 [facility] [address] [place] [id number] [place] [id number] Mar, LUQ abdominal pain R10.12 ; Nausea R11.0 and H. pylori infection A04.8 [facility] [address] [place] [id number] [place] [address] Jul, [facility] [address] [address] Jul, [facility] [address] [place] [id number] [place] [address] Apr, [facility] [address] [id number] [address] Apr, [facility] [place] [facility] [address] [id number] [address] Apr, [facility] [place] [facility] [address] [facility] [id number] [address] Apr, [facility] [address] [facility] [id number] [place] [id number] Mar, [facility] [place] [facility] [address] [id number] [address] Mar, [facility] [place] [facility] [address] [id number] [place] [address] Mar, [facility] [place] [facility] [address] [id number] [address] Mar, [facility] [place] [facility] [address] [id number] [place] [address] Feb, [facility] [place] [facility] [address] [id number] [place] [address] Feb, [facility] [place] [facility] [address] [id number] [place] [address] Feb, [facility] [address] [facility] [id number] [place]KE[place] [id number] Feb, [facility] [place] [facility] [address] [id number] [place] [address] Jan, [facility] [place] [facility] [address] [id number] [place] [address] Jan, [facility] [place] [facility] [address] [id number] [place] [address] Jan, [facility] [place] [facility] [address] [id number] [address] Jan, [facility] [place] [facility] [address] [id number] [place] [address] Nov, [facility] [place] [facility] [address] [facility] [id number] [place] [address] Nov, [facility] [address] [facility] [id number] [place] [address] Jul, [facility] [address] [facility] [id number] [address] Jul, [facility] [address] [facility] [id number] [place] [address] Mar, [facility] [address] [facility] [id number] [place] [address] Jul, IMMUNIZATIONS No Known Immunizations SOCIAL HISTORY Never Assessed REASON FOR VISIT Vomiting, diarrhea x3 days JStrasserRN PLAN OF CARE Activity Details Follow Up prn Reason: VITAL SIGNS Height 69 in 2017-08-18 Weight 224 lbs 2017-08-18 Temperature 97.6 degrees Fahrenheit 2017-08-18 Heart Rate 84 bpm 2017-08-18 Respiratory Rate 20 2017-08-18 BMI 33.08 kg/m2 2017-08-18 Blood pressure systolic 128 mmHg 2017-08-18 Blood pressure diastolic 80 mmHg 2017-08-18 MEDICATIONS Medication Instructions Dosage Frequency Start Date End Date Duration Status Ibuprofen 200 MG Orally Three times a day 1 tablet with food or milk as needed 8h Not-Taking Omeprazole 20 MG Orally twice a day 1 capsule 12h 05 Mar, 2017 30 days Not-Taking DayQuil Multi-Symptom Not-Taking Azithromycin 250 MG Orally Once a day 2 tablets on the first day, then 1 tablet daily for 4 days 24h 5 day(s) Not-Taking Zofran ODT 4 MG Orally Every 8 hours PRN 1 tablet on the tongue and allow to dissolve 5 days Active RESULTS No Results PROCEDURES No Known procedures INSTRUCTIONS MEDICATIONS ADMINISTERED No Known Medications MEDICAL (GENERAL) HISTORY Type Description Date Medical History asthma Medical History Bipolar disorder, unspecified Medical History Unspecified epilepsy without mention of intractable epilepsy Surgical History tubal ligation Surgical History diagnostic lap Hospitalization History pneumonia
--- OUTSIDE RECORDS SUMMARY | 2018-09-04 07:26 | XMS REPORT ---
Author Author STEPHANIE PÉREZ [facility] Address [address] [place] [address] Care Team Providers Care Fountain Dispenser Name Role Phone STEPHANIE PÉREZ Unavailable PROBLEMS Unknown Problems ALLERGIES Substance Reaction Event Type Date Status Penicillin V Potassium anaphylaxis Drug Allergy Jun, Active ENCOUNTERS Encounter Location Date Diagnosis [facility] [address] [id number] [place] [id number] Oct, [facility] [address] [place] [id number] [place] [address] August, Gastroenteritis K52.9 [facility] [address] [place] [id number] [place] [address] Jun, Pneumonia of right upper lobe due to infectious organism J18.1 [facility] [address] [place] [id number] [place] [address] Jun, Bronchitis J40 [facility] [address] [place] [id number] [place] [address] May, Sore throat J02.9 [facility] [address] [place] [id number] [place] [id number] Mar, LUQ abdominal pain R10.12 ; Nausea R11.0 and H. pylori infection A04.8 [facility] [place] [facility] [address] [place] [id number] [place] [address] Jul, [facility] [place] [facility] [address] [address] Jul, [facility] [place] [facility] [address] [place] [id number] [place] [address] Apr, [facility] [place] [facility] [address] [place] [address] Apr, [facility] [place] [facility] [address] [id number], [place] [address] Apr, [facility] [place] [facility] [address] [id number], [place] [address] Apr, [facility] [address] [facility] [id number][place] [id number] Mar, [facility] [place] [facility] [address] [id number], [place] [address] Mar, [facility] [place] [facility] [address] [id number] [place] [address] Mar, [facility] [place] [facility] [address] [id number], [place] [address] Mar, [facility] [place] [facility] [address] [id number], [place] [address] Feb, [facility] [place] [facility] [address] [id number], [place] [address] Feb, [facility] [place] [facility] [address] [id number], [place] [address] Feb, [facility] [address] [facility] [id number][place] [id number] Feb, [facility] [place] [facility] [address] [id number], [place] [address] Jan, [facility] [place] [facility] [address] [id number], [place] [address] Jan, [facility] [place] [facility] [address] [id number], [place] [address] Jan, [facility] [place] [facility] [address] [id number], [place] [address] Jan, [facility] [place] [facility] [address] [id number], [place] [address] Nov, [facility] [place] [facility] [address] [facility] [id number] [place] [address] Nov, [facility] [place] [facility] [address] [facility] [id number], [place] [address] Jul, [facility] [place] [facility] [address] [facility] [id number], [place] [address] Jul, [facility] [place] [facility] [address] [facility] [id number], [place] [address] Mar, [facility] [place] [facility] [address] [facility] [id number], [place] [address] Jul, IMMUNIZATIONS No Known Immunizations SOCIAL HISTORY Never Assessed REASON FOR VISIT Cough/ALEMAN/congestion, pt. states she feels like she has pressure in her chest x 1 week; has progressively gotten worse Evelyn KELLOGG PLAN OF CARE Activity Details Follow Up prn Reason: VITAL SIGNS Height 69 in 2017-07-02 Weight 222.2 lbs 2017-07-02 Temperature 98.2 degrees Fahrenheit 2017-07-02 Heart Rate 100 bpm 2017-07-02 Respiratory Rate 18 2017-07-02 BMI 32.81 kg/m2 2017-07-02 Blood pressure systolic 122 mmHg 2017-07-02 Blood pressure diastolic 74 mmHg 2017-07-02 MEDICATIONS Medication Instructions Dosage Frequency Start Date End Date Duration Status Azithromycin 250 MG Orally Once a day 2 tablets on the first day, then 1 tablet daily for 4 days 24h 5 day(s) Active PredniSONE 20 mg Orally Once a day 2 tablets 24h Jun, Jun, 05 days Active Omeprazole 20 MG Orally twice a day 1 capsule 12h Mar, 30 days Not-Taking Ibuprofen 200 MG Orally Three times a day 1 tablet with food or milk as needed 8h Active DayQuil Multi-Symptom Active RESULTS No Results PROCEDURES No Known procedures INSTRUCTIONS MEDICATIONS ADMINISTERED No Known Medications MEDICAL (GENERAL) HISTORY Type Description Date Medical History asthma Medical History Bipolar disorder, unspecified Medical History Unspecified epilepsy without mention of intractable epilepsy Surgical History tubal ligation Surgical History diagnostic lap Hospitalization History pneumonia
--- OUTSIDE RECORDS SUMMARY | 2018-09-04 07:26 | XMS REPORT ---
Author Author PEDRO PABLO FORREST Organization [facility] Address [address] [place] [address] Care Team Providers Care Bindery Technician Name Role Phone PEDRO PABLO FORREST Unavailable PROBLEMS Unknown Problems ALLERGIES Substance Reaction Event Type Date Status Penicillin V Potassium anaphylaxis Drug Allergy Jun, Active ENCOUNTERS Encounter Location Date Diagnosis [facility] [address] [id number] [place] [id number] Oct, [facility] [address] [address] August, Gastroenteritis K52.9 [facility] [address] [address] Jun, Pneumonia of right upper lobe due to infectious organism J18.1 [facility] [address] [place] [id number] [place] [address] Jun, Bronchitis J40 [facility] [address] [place] [id number] [place] [address] May, Sore throat J02.9 [facility] [id number] [place] [id number] Mar, LUQ abdominal pain R10.12 ; Nausea R11.0 and H. pylori infection A04.8 [facility] [address] [place] [id number] [place] [address] Jul, [facility] [address] [address] Jul, [facility] [address] [address] Apr, [facility] [address] [address] Apr, [facility] [place] [facility] [address] [facility] [id number], [place] [address] Apr, [facility] [place] [facility] [address] [facility] [id number], [place] [address] Apr, [facility] [address] [facility] [id number][place] [id number] Mar, [facility] [place] [facility] [address] [id number], [place] [address] Mar, [facility] [place] [facility] [address] [id number], [place] [address] Mar, [facility] [place] [facility] [address] [id number], [place] [address] Mar, [facility] [place] [facility] [address] [facility] [id number], [place] [address] Feb, [facility] [place] [facility] [address] [id number], [place] [address] Feb, [facility] [place] [facility] [address] [id number], [place] [address] Feb, [facility] 120 [facility] [id number], [place] [id number] Feb, [facility] [place] [facility] [address] [facility] [id number], [place] [address] Jan, [facility] [place] [facility] [address] [id number], [place] [address] Jan, [facility] [place] [facility] [address] [id number], [place] [address] Jan, [facility] [place] [facility] [address] [id number], [place] [address] Jan, [facility] [place] [facility] [address] [facility] [id number], [place] [address] Nov, [facility] [place] [facility] [address] [id number], [place] [address] Nov, [facility] [address] [facility] [id number], [place] [address] Jul, [facility] [address] [facility] [id number], [place] [address] Jul, [facility] [address] [facility] [id number], [place] [address] Mar, [facility] [address] [facility] [id number], [place] [address] Jul, IMMUNIZATIONS No Known Immunizations SOCIAL HISTORY Never Assessed REASON FOR VISIT cough/congestion Pt has had cough and congestion for 3 weeks, states she has co ughed so hard her muscles are sore and she is having to use rescue inhaler more VALDEZ Abrams PLAN OF CARE Activity Details Follow Up prn Reason: VITAL SIGNS Height 69 in 2017-07-09 Weight 226.4 lbs 2017-07-09 Temperature 97.4 degrees Fahrenheit 2017-07-09 Heart Rate 106 bpm 2017-07-09 Respiratory Rate 24 2017-07-09 Oximetry 99 % 2017-07-09 BMI 33.43 kg/m2 2017-07-09 Blood pressure systolic 128 mmHg 2017-07-09 Blood pressure diastolic 76 mmHg 2017-07-09 MEDICATIONS Medication Instructions Dosage Frequency Start Date End Date Duration Status PredniSONE 20 mg Orally Once a day 3 tablets x 3 days, then 2 tablets x 3 days, then 1 tablet x 3 days 24h Jun, Jul, 30 day(s) Active Ibuprofen 200 MG Orally Three times a day 1 tablet with food or milk as needed 8h Active Doxycycline Hyclate 100 mg Orally every 12 hrs 1 tablet 12h Jun, Jul, 10 days Active DayQuil Multi-Symptom Not-Taking Azithromycin 250 MG Orally Once a day 2 tablets on the first day, then 1 tablet daily for 4 days 24h 5 day(s) Not-Taking Omeprazole 20 MG Orally twice a day 1 capsule 12h Mar, 30 days Not-Taking RESULTS Name Result Date Reference Range Xray : Chest 2 View (IN HOUSE) 2017-07-09 PROCEDURES Procedure Date Ordered Result Body Site X-RAY EXAM CHEST 2 VIEWS July 09, 2017 INSTRUCTIONS MEDICATIONS ADMINISTERED No Known Medications MEDICAL (GENERAL) HISTORY Type Description Date Medical History asthma Medical History Bipolar disorder, unspecified Medical History Unspecified epilepsy without mention of intractable epilepsy Surgical History tubal ligation Surgical History diagnostic lap Hospitalization History pneumonia
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
[2018-09-04] MEDS ORDERED: NS IV 1000 ML 1,000 ML IV STA (08:35)
[2018-09-04] MEDS ORDERED: fentaNYL INJECTION 100 MCG/2 ML AMP IVP STA (08:35)
[2018-09-04 08:45] LABS: BASOPHILS % (AUTO) 0 % (0-10); EOSINOPHILS % (AUTO) 0 % (0-10); HEMATOCRIT 36 % (35-52); HEMOGLOBIN 12.7 G/DL (11.5-16.0); LYMPHOCYTES # (AUTO) 3.6 X 10^3 (1.0-4.0); LYMPHOCYTES % (AUTO) 28 % (12-44); MEAN CORPUSCULAR HEMOGLOBIN 31 PG (25-34); MEAN CORPUSCULAR HGB CONC 35 G/DL (32-36); MEAN CORPUSCULAR VOLUME 89 FL (80-99); MEAN PLATELET VOLUME 9.8 FL (7.4-10.4); MONOCYTES # (AUTO) 0.9 X 10^3 (0.0-1.0); MONOCYTES % (AUTO) 7 % (0-12); NEUTROPHILS # (AUTO) 8.5 X 10^3 (1.8-7.8); NEUTROPHILS % (AUTO) 65 % (42-75); PLATELET COUNT 300 10^3/uL (130-400); RED CELL DISTRIBUTION WIDTH 13.8 % (10.0-14.5); WHITE BLOOD COUNT 13.1 10^3/uL (4.3-11.0)
[2018-09-04] MEDS ORDERED: ONDANSETRON 4 MG/2 ML (SDV) Z0FRAN IVP ONE (08:45)
[2018-09-04 09:00] LABS: ALANINE AMINOTRANSFERASE 36 U/L (0-55); ALBUMIN 4.4 GM/DL (3.2-4.5); ALKALINE PHOSPHATASE 57 U/L (40-136); AMYLASE 20 U/L (25-125); BILIRUBIN,TOTAL 0.4 MG/DL (0.1-1.0); BUN/CREATININE RATIO 11; CALCIUM 9.5 MG/DL (8.5-10.1); CARBON DIOXIDE 22 MMOL/L (21-32); CHLORIDE 102 MMOL/L (98-107); GFR ESTIMATED > 60; GLUCOSE 107 MG/DL (70-105); LIPASE 5 U/L (8-78); MAGNESIUM 2.1 MG/DL (1.8-2.4); POTASSIUM 3.6 MMOL/L (3.6-5.0); SODIUM 135 MMOL/L (135-145); TOTAL PROTEIN 7.6 GM/DL (6.4-8.2)
[2018-09-04 09:18] LABS: BILIRUBIN,URINE NEGATIVE (NEGATIVE); CLARITY,URINE SLIGHTLY CLOUDY; COLOR,URINE YELLOW; GLUCOSE, URINE (UA) NEGATIVE (NEGATIVE); KETONES,URINE NEGATIVE (NEGATIVE); LEUKOCYTE ESTERASE ,URINE 1+ (NEGATIVE); NITRITE,URINE NEGATIVE (NEGATIVE); PH,URINE 5 (5-9); PROTEIN,URINE 1+ (NEGATIVE); UROBILINOGEN,URINE NORMAL (NORMAL)
[2018-09-04 09:28] LABS: BACTERIA,URINE FEW /HPF; SQUAMOUS EPITHELIAL CELL,UR 25-50 /HPF
[2018-09-04] MEDS ORDERED: LIDOCAINE 2% VISCOUS 15 ML UDC PO ONE (09:30)
[2018-09-04] MEDS ORDERED: ANTACID SUSP 30 ML UDC (MYLANTA) PO ONE (09:30)
[2018-09-04 09:33] LABS: AMPHETAMINE SCREEN, URINE POSITIVE (NEGATIVE); BARBITURATE SCREEN URINE NEGATIVE (NEGATIVE); BENZODIAZEPINES SCREEN URINE NEGATIVE (NEGATIVE); CANNABINOID SCREEN, URINE NEGATIVE (NEGATIVE); COCAINE SCREEN URINE NEGATIVE (NEGATIVE); METHADONE STAT NEGATIVE (NEGATIVE); METHAMPHETAMINE SCREEN URINE S POSITIVE (NEGATIVE); OPIATE SCREEN URINE NEGATIVE (NEGATIVE); OXYCODONE STAT NEGATIVE (NEGATIVE); PROPOXYPHENE STAT NEGATIVE (NEGATIVE); TRICYCLIC ANTIDEPRESSANTS SCRE NEGATIVE (NEGATIVE)
--- NOTE | 2018-09-04 12:36 | ED Abdominal Pain ---
General Chief Complaint: Abdominal/GI Problems Stated Complaint: ABD PAIN/SWELLING Nursing Triage Note: Pt c/o chronic abdominal pain that has persisted for over a year. Pt reports pain has worsened today. Pt c/o nausea and vomiting. Pt reports pain began on L side and is now radiating to R side side. Pt reports pain is radiating into L shoulder making it difficult to breath. Pt also reports feeling as if heart is fluttering. Sepsis Screen: No Definite Risk Source of Information: Patient Exam Limitations: No Limitations History of Present Illness Date Seen by Provider: September 04, 2018 Time Seen by Provider: 08:38 Initial Comments This 33-year-old woman presents to the emergency room with complaints of upper abdominal pain for about one year that has been worsening despite frequent usage of antiacid medications. She has been taking Zantac and omeprazole. She has been seen in the outpatient setting for this. She reports elevation of pancreatic enzymes at one point as well. She presents to the emergency room today because she cannot tolerate the pain any longer. She reports pain with breathing and moving. Pain seems most concentrated in the left upper quadrant but extends across the entire upper abdomen. She also has some lower abdominal pain which is new over the past few days. She also reports having some chest discomfort this morning which she attributes to acid reflux. She also had some fluttering in her chest. She is anxious about this because she has multiple family members with atrial fibrillation. EKG demonstrated sinus tachycardia. Patient reports alcohol use on the weekends. She did drink alcohol yesterday. She also smokes. She denies any illicit or unprescribed drug use. Patient was noted to be significantly tachycardic upon presentation. Allergies and Home Medications Allergies Coded Allergies: Penicillins (Verified Allergy, Unknown, 01/20/09) Home Medications Clindamycin Hcl 300 Mg Capsule, 1 EACH PO QID Prescribed by: LACI JOHNSON on 05/28/14 1358 Cyclobenzaprine HCl 10 Mg Tablet, 10 MG PO Q8H PRN for SPASMS Prescribed by: SLY AGUAYO on 01/23/17 1607 Hydrocodone Bit/Acetaminophen 1 Each Tablet, 1 EACH PO Q6H Prescribed by: SLY AGUAYO on 01/23/17 1607 Naproxen 500 Mg Tablet, 1 EACH PO TID PRN for PAIN FOR PAIN Prescribed by: LACI JOHNSON on 05/28/14 1358 Patient Home Medication List Home Medication List Reviewed: Yes Review of Systems Review of Systems Constitutional: no symptoms reported EENTM: No Symptoms Reported Respiratory: No Symptoms Reported Cardiovascular: See HPI Gastrointestinal: See HPI Genitourinary: See HPI; Denies Frequency; Other (no dysuria reported) Musculoskeletal: no symptoms reported Skin: no symptoms reported Psychiatric/Neurological: No Symptoms Reported Endocrine: No Symptoms Reported Past Muyddqt-Ocnbmw-Skjwco Hx Past Med/Social Hx: Reviewed and Corrections made Patient Social History Alcohol Use: Occasionally Uses Recreational Drug Use: No (SMOKES 1/2 PPD) Smoking Status: Current Everyday Smoker Type Used: Cigarettes Recent Foreign Travel: No Contact w/Someone Who Travel: No Recent Infectious Disease Expo: No Recent Hopitalizations: No Immunizations Up To Date Tetanus Booster (TDap): Less than 5yrs PED Vaccines UTD: Yes Date of Pneumonia Vaccine: Nov 08, 2013 Seasonal Allergies Seasonal Allergies: Yes Past Medical History Surgeries: Yes (WISDOM TEETH REMOVED) Orthopedic (ankle), Tubal Ligation Respiratory: Yes Asthma Cardiac: No Neurological: Yes Seizure Disorder Reproductive Disorders: No Gastrointestinal: No Musculoskeletal: No Endocrine: No HEENT: No Cancer: No Psychosocial: No Integumentary: No Blood Disorders: No Adverse Reaction/Blood Tranf: No Family Medical History Reviewed Nursing Family Hx OTHER MUSCULOSKELETAL DISEASES 19 FATHER, Onset:40's - 50 (ALS) Family history: Cardiovascular disease 19 FATHER (Afib) Family history: Diabetes mellitus 19 MOTHER, Onset:40's - 50 Seizure disorder G8 BROTHER, Onset:25's - 30 (Epilepsy) Heart Disease (atrial fibrillation) Physical Exam Vital Signs Vital Signs - First Documented 09/04/18 08:25 Temp 98.5 Pulse 135 Resp 22 B/P (MAP) 124/101 (109) Pulse Ox 100 O2 Delivery Room Air Capillary Refill : Less Than 3 Seconds Height/Weight/BMI Height: 5'8" Weight: 220lbs. 2.0oz. 99.226489vv; 27.37 BMI Method:Stated General Appearance: WD/WN, mild distress (emotional, tearful) HEENT: PERRL/EOMI, normal ENT inspection, pharynx normal Neck: normal inspection Respiratory: lungs clear, normal breath sounds, no respiratory distress, no accessory muscle use Cardiovascular: no edema, no murmur, tachycardia (regular) Gastrointestinal: normal bowel sounds, soft, tenderness (across the upper abdomen and lower abdomen. No central tenderness) Extremities: normal inspection, no pedal edema Neurologic/Psychiatric: remelt sugar boiler II-XII nml as tested, no motor/sensory deficits, alert, oriented x 3, other (anxious, tearful) Skin: normal color, warm/dry Progress/Results/Core Measures Results/Orders Lab Results Laboratory Tests Test 09/04/18 08:34 09/04/18 09:10 09/04/18 11:25 Range/Units White Blood Count 13.1 H 4.3-11.0 10^3/uL Red Blood Count 4.11 L 4.35-5.85 10^6/uL Hemoglobin 12.7 11.5-16.0 G/DL Hematocrit 36 35-52 % Mean Corpuscular Volume 89 80-99 FL Mean Corpuscular Hemoglobin 31 25-34 PG Mean Corpuscular Hemoglobin Concent 35 32-36 G/DL Red Cell Distribution Width 13.8 10.0-14.5 % Platelet Count 300 130-400 10^3/uL Mean Platelet Volume 9.8 7.4-10.4 FL Neutrophils (%) (Auto) 65 42-75 % Lymphocytes (%) (Auto) 28 12-44 % Monocytes (%) (Auto) 7 0-12 % Eosinophils (%) (Auto) 0 0-10 % Basophils (%) (Auto) 0 0-10 % Neutrophils # (Auto) 8.5 H 1.8-7.8 X 10^3 Lymphocytes # (Auto) 3.6 1.0-4.0 X 10^3 Monocytes # (Auto) 0.9 0.0-1.0 X 10^3 Eosinophils # (Auto) 0.0 0.0-0.3 10^3/uL Basophils # (Auto) 0.0 0.0-0.1 10^3/uL Sodium Level 135 135-145 MMOL/L Potassium Level 3.6 3.6-5.0 MMOL/L Chloride Level 102 98-107 MMOL/L Carbon Dioxide Level 22 21-32 MMOL/L Anion Gap 11 5-14 MMOL/L Blood Urea Nitrogen 9 7-18 MG/DL Creatinine 0.80 0.60-1.30 MG/DL Estimat Glomerular Filtration Rate > 60 BUN/Creatinine Ratio 11 Glucose Level 107 H 70-105 MG/DL Calcium Level 9.5 8.5-10.1 MG/DL Corrected Calcium 9.2 8.5-10.1 MG/DL Magnesium Level 2.1 1.8-2.4 MG/DL Total Bilirubin 0.4 0.1-1.0 MG/DL Aspartate Amino Transf (AST/SGOT) 21 5-34 U/L Alanine Aminotransferase (ALT/SGPT) 36 0-55 U/L Alkaline Phosphatase 57 40-136 U/L Troponin I < 0.028 < 0.028 <0.028 NG/ML C-Reactive Protein High Sensitivity 2.86 H 0.00-0.50 MG/DL Total Protein 7.6 6.4-8.2 GM/DL Albumin 4.4 3.2-4.5 GM/DL Amylase Level 20 L 25-125 U/L Lipase 5 L 8-78 U/L Human Chorionic Gonadotropin, Quant 961 H <5 MIU/ML Serum Test, Qualitative POSITIVE NEGATIVE Urine Color YELLOW Urine Clarity SLIGHTLY CLOUDY Urine pH 5 5-9 Urine Specific [place] 1.025 H 1.016-1.022 Urine Protein 1+ H NEGATIVE Urine Glucose (UA) NEGATIVE NEGATIVE Urine Ketones NEGATIVE NEGATIVE Urine Nitrite NEGATIVE NEGATIVE Urine Bilirubin NEGATIVE NEGATIVE Urine Urobilinogen NORMAL NORMAL MG/DL Urine Leukocyte Esterase 1+ H NEGATIVE Urine RBC (Auto) 2+ H NEGATIVE Urine RBC 2-5 H /HPF Urine WBC 2-5 /HPF Urine Squamous Epithelial Cells 25-50 H /HPF Urine Crystals NONE /LPF Urine Bacteria FEW H /HPF Urine Casts NONE /LPF Urine Mucus MODERATE H /LPF Urine Culture Indicated YES Urine Opiates Screen NEGATIVE NEGATIVE Urine Oxycodone Screen NEGATIVE NEGATIVE Urine Methadone Screen NEGATIVE NEGATIVE Urine Propoxyphene Screen NEGATIVE NEGATIVE Urine Barbiturates Screen NEGATIVE NEGATIVE Ur Tricyclic Antidepressants Screen NEGATIVE NEGATIVE Urine Phencyclidine Screen NEGATIVE NEGATIVE Urine Amphetamines Screen POSITIVE H NEGATIVE Urine Methamphetamines Screen POSITIVE H NEGATIVE Urine Benzodiazepines Screen NEGATIVE NEGATIVE Urine Cocaine Screen NEGATIVE NEGATIVE Urine Cannabinoids Screen NEGATIVE NEGATIVE My Orders Orders - YANI HALL MD Us Gallbladder [id number] (09/04/18 11:16) Us Ob Transvaginal [id number] (09/04/18 11:16) Troponin I (09/04/18 11:22) Fentanyl Injection (Sublimaze Injection (09/04/18 13:15) Red Cells Leukocytes Reduced (09/04/18 14:16) Type And Screen (09/04/18 14:16) Medications Given in ED Current Medications Medications Dose Ordered Sig/Tori Route Start Time Stop Time Status Last Admin Dose Admin Al Hydrox/Mg Hydrox/Simethicone 30 ml ONCE ONCE PO 09/04/18 09:30 09/04/18 09:31 DC 09/04/18 10:02 30 ML Fentanyl Citrate 75 mcg ONCE ONCE IVP 09/04/18 13:15 09/04/18 13:16 DC 09/04/18 13:36 75 MCG Lidocaine HCl 15 ml ONCE ONCE PO 09/04/18 09:30 09/04/18 09:31 DC 09/04/18 10:02 15 ML Ondansetron HCl 4 mg ONCE ONCE IVP 09/04/18 08:45 09/04/18 08:46 DC 09/04/18 08:42 4 MG Vital Signs/I&O 09/04/18 09/04/18 08:25 08:45 Temp 98.5 98.5 Pulse 135 Resp 22 B/P (MAP) 124/101 (109) Pulse Ox 100 O2 Delivery Room Air Blood Pressure Mean: 109 Progress Progress Note #1: Time: 11:20 Progress Note Initial workup was ordered by Dr. Aguayo. Patient was seen and examined by me after shift change. She was originally tachycardic. Troponin and EKG were negative for evidence of cardiac disease. Patient's drug screen was positive for amphetamines and methamphetamines. Patient adamantly denies any use of illicit or unprescribed medications. Repeat troponin will be drawn for cardiac rule out. Serum test was positive. Patient asserts that she has had a tubal ligation. A pelvic ultrasound as well as a gallbladder ultrasound have been ordered for further investigation. A GI cocktail was given with no improvement in pain. Patient declines any further pain medication until we determine if she has a viable . Patient was initially given fentanyl, Zofran, and IV fluids as ordered by Dr. Aguayo at presentation. Progress Note #2: Time: 13:06 Progress Note Ultrasound results were discussed with Dr. Trujillo. There is no evidence intrauterine . There is an adnexal mass with surrounding free fluid. Dr. Trujillo is concerned this may represent a ruptured ectopic . Dr. Robledo is the no local provider space control agent for gynecology. He is presently in a surgery and will call back as he is available. Progress Note #3: Time: 14:17 Progress Note Case was discussed with Dr. Robledo who tentatively anticipates surgery. 2 units of blood have been ordered for crossmatch and hold. Dr. Robledo will present to the ER to assess the patient. Progress Note #4: Time: 14:[address] Robledo has been to the emergency room to assess the patient. He plans to take her promptly to surgery from the ER. Patient's vital signs are stable at this time. Diagnostic Imaging Diagonstic Imaging: Ultrasound Plain Films/CT/US/NM/MRI: pelvis Comments Ultrasound discussed with Dr. Trujillo and report reviewed. See report below: NAME: STEFAN KAHN [facility] REC#: [id number] PT STATUS: REG ER : 1985 PHYSICIAN: YANI HALL MD ADMIT DATE: 09/04/18/ER Draft Date of Exam:09/04/18 US OB TRANSVAGINAL [id number] INDICATION: Pelvic pain. Patient has positive test. FINDINGS: The uterus measures 8.7 x 6.3 x 5.1 cm. Endometrium is approximately 16 mm in thickness. No intrauterine gestational sac is present. There is trace fluid identified in the endometrium. There is a complex mass identified in the left adnexa measuring approximately 4.9 x 7.9 x 5.2 cm. There is a large amount of free fluid within the pelvis with some internal complexity which may represent blood or pus. No normal-appearing ovaries are visualized. IMPRESSION: No evidence of intrauterine . There is a large left adnexal mass as well as a large amount of complex free pelvic fluid. In light of patient's positive test, features are concerning for ruptured ectopic . Results were discussed with Dr. Hall of the emergency department prior to this dictation. Dictated on workstation # [id number] Dict: 09/04/18 1255 Trans: 09/04/18 1303 [id number] Interpreted by: ISADORA TRUJILLO MD Diagonstic Imaging: Ultrasound Plain Films/CT/US/NM/MRI: abdomen Comments Gallbladder ultrasound discussed with Dr. Trujillo and report reviewed. See report below: NAME: STEFAN KAHN [facility] REC#: [id number] PT STATUS: REG ER : 1985 PHYSICIAN: YANI HALL MD ADMIT DATE: 09/04/18/ER Draft Date of Exam:09/04/18 US GALLBLADDER [id number] PROCEDURE: US Gallbladder. TECHNIQUE: Multiple real-time grayscale images were obtained over the right upper quadrant in various projections. INDICATION: Right upper quadrant pain. The patient also has a positive test. The liver is normal in size at 14.5 cm. No discrete liver mass is identified. The portal vein is patent and shows normal direction of flow. There is trace free fluid identified in Morison's pouch. Gallbladder is without stones or sludge. No wall thickening or biliary ductal dilatation is seen. The pancreas is unremarkable. Right kidney is without evidence of calculi or hydronephrosis although the lower pole is obscured by bowel gas. IMPRESSION: 1. No evidence of cholelithiasis or acute cholecystitis. 2. Minimal free fluid in the right upper quadrant. The study is otherwise unremarkable. Dictated on workstation # [id number] Dict: 09/04/18 1253 Trans: 09/04/18 1259 [facility] [id number] Interpreted by: ISADORA TRUJILLO MD Departure Communication (Admissions) Time/Spoke to Admitting Phy: 14:13 Dr. Robledo Impression Primary Impression: Ruptured ectopic Additional Impression: Generalized abdominal pain Disposition: ADMITTED INPATIENT Condition: Improved Admissions Decision to Admit Reason: Admit from ER (General) Decision to Admit/Date: September 04, 2018 Time/Decision to Admit Time: 14:13 Departure-Patient Inst. [place] [facility] [place] Primary Care Physician YANI HALL MD September 04, 2018 12:36
--- NOTE | 2018-09-04 13:00 | Diagnostic Imaging Report ---
PROCEDURE: US Gallbladder. TECHNIQUE: Multiple real-time grayscale images were obtained over the right upper quadrant in various projections. INDICATION: Right upper quadrant pain. The patient also has a positive test. The liver is normal in size at 14.5 cm. No discrete liver mass is identified. The portal vein is patent and shows normal direction of flow. There is trace free fluid identified in Morison's pouch. Gallbladder is without stones or sludge. No wall thickening or biliary ductal dilatation is seen. The pancreas is unremarkable. Right kidney is without evidence of calculi or hydronephrosis although the lower pole is obscured by bowel gas. IMPRESSION: 1. No evidence of cholelithiasis or acute cholecystitis. 2. Minimal free fluid in the right upper quadrant. The study is otherwise unremarkable. Dictated by: Dictated on workstation # [id number]
--- NOTE | 2018-09-04 13:03 | Diagnostic Imaging Report ---
INDICATION: Pelvic pain. Patient has positive test. FINDINGS: The uterus measures 8.7 x 6.3 x 5.1 cm. Endometrium is approximately 16 mm in thickness. No intrauterine gestational sac is present. There is trace fluid identified in the endometrium. There is a complex mass identified in the left adnexa measuring approximately 4.9 x 7.9 x 5.2 cm. There is a large amount of free fluid within the pelvis with some internal complexity which may represent blood or pus. No normal-appearing ovaries are visualized. IMPRESSION: No evidence of intrauterine . There is a large left adnexal mass as well as a large amount of complex free pelvic fluid. In light of patient's positive test, features are concerning for ruptured ectopic . Results were discussed with Dr. Hall of the emergency department prior to this dictation. Dictated by: Dictated on workstation # [id number]
[2018-09-04] MEDS ORDERED: fentaNYL INJECTION 100 MCG/2 ML AMP IVP ONE (13:15)
[2018-09-04] MEDS ORDERED: BUP/EPI 0.25% 1:200,000 (MARCAINE) 10 ML VIAL IJ ONE (14:43)
[2018-09-04] MEDS ORDERED: DEXAMETHASONE 10 MG/ML (DECADRON) 1 ML VIAL ONE (14:47)
[2018-09-04] MEDS ORDERED: ONDANSETRON 4 MG/2 ML (SDV) Z0FRAN ONE (14:47)
[2018-09-04] MEDS ORDERED: LIDOCAINE PF 2% 5 ML (XYLOCAINE) VIAL ONE (14:47)
[2018-09-04] MEDS ORDERED: MIDAZOLAM 2 MG/2 ML (VERSED) VIAL ONE ×2 (14:47→15:10)
[2018-09-04] MEDS ORDERED: proPOfol 200 MG/20 ML (DIPRIVAN) VIAL IV ONE (14:47)
[2018-09-04] MEDS ORDERED: SEVOFLURANE (ULTANE) 15 ML INHAL SOLN ONE ×3 (14:47→16:22)
[2018-09-04] MEDS ORDERED: fentaNYL INJECTION 100 MCG/2 ML AMP ONE ×3 (14:47→15:57)
[2018-09-04] MEDS ORDERED: D5 LR IV SOLUTION 1,000 ML IV SCH ×2 (14:56→15:00)
--- NOTE | 2018-09-04 14:56 | History & Physical ---
History and Physical Date Seen by Provider: September 04, 2018 Time Seen by Provider: 14:51 This patient is a 33-year-old ectopic 1 now ectopic 2 white female whose LMP was 2 months ago. She presented to the emergency department today with increasing abdominal pain over the last 3 days. Ultrasound was obtained that showed a large left adnexal mass and a large amount of free fluid consistent with a ruptured ectopic. This patient's history includes having her tubes tied twice in the past. After her first tubal sterilization she had another and had a delivery and then had her tubes tied again. She is aware of the condition and understands that she needs emergent surgery secondary to likely intra-abdominal bleeding. She denies vaginal bleeding. She denies nausea vomiting. She is on no medications on admission. Allergies are to penicillin which causes hives Medications are none followed patient does report she uses an albuterol inhaler when necessary for her occasional episode of asthma Past medical history is significant for asthma that requires only periodic use of an inhaler Past surgical history includes having her tubes tied twice in the past last one was done about 3 years ago Past OB history patient has had 4 vaginal deliveries she has had a total of 6 pregnancies with one previous ectopic and this current ectopic Social history is significant for tobacco use at one half pack per day and occasional use of alcohol. She denies drug use. History is significant for a history of diabetes and high blood pressure in her parents Labs are as follows Laboratory Tests Test 09/04/18 08:34 09/04/18 09:10 09/04/18 11:25 Range/Units White Blood Count 13.1 H 4.3-11.0 10^3/uL Red Blood Count 4.11 L 4.35-5.85 10^6/uL Hemoglobin 12.7 11.5-16.0 G/DL Hematocrit 36 35-52 % Mean Corpuscular Volume 89 80-99 FL Mean Corpuscular Hemoglobin 31 25-34 PG Mean Corpuscular Hemoglobin Concent 35 32-36 G/DL Red Cell Distribution Width 13.8 10.0-14.5 % Platelet Count 300 130-400 10^3/uL Mean Platelet Volume 9.8 7.4-10.4 FL Neutrophils (%) (Auto) 65 42-75 % Lymphocytes (%) (Auto) 28 12-44 % Monocytes (%) (Auto) 7 0-12 % Eosinophils (%) (Auto) 0 0-10 % Basophils (%) (Auto) 0 0-10 % Neutrophils # (Auto) 8.5 H 1.8-7.8 X 10^3 Lymphocytes # (Auto) 3.6 1.0-4.0 X 10^3 Monocytes # (Auto) 0.9 0.0-1.0 X 10^3 Eosinophils # (Auto) 0.0 0.0-0.3 10^3/uL Basophils # (Auto) 0.0 0.0-0.1 10^3/uL Sodium Level 135 135-145 MMOL/L Potassium Level 3.6 3.6-5.0 MMOL/L Chloride Level 102 98-107 MMOL/L Carbon Dioxide Level 22 21-32 MMOL/L Anion Gap 11 5-14 MMOL/L Blood Urea Nitrogen 9 7-18 MG/DL Creatinine 0.80 0.60-1.30 MG/DL Estimat Glomerular Filtration Rate > 60 BUN/Creatinine Ratio 11 Glucose Level 107 H 70-105 MG/DL Calcium Level 9.5 8.5-10.1 MG/DL Corrected Calcium 9.2 8.5-10.1 MG/DL Magnesium Level 2.1 1.8-2.4 MG/DL Total Bilirubin 0.4 0.1-1.0 MG/DL Aspartate Amino Transf (AST/SGOT) 21 5-34 U/L Alanine Aminotransferase (ALT/SGPT) 36 0-55 U/L Alkaline Phosphatase 57 40-136 U/L Troponin I < 0.028 < 0.028 <0.028 NG/ML C-Reactive Protein High Sensitivity 2.86 H 0.00-0.50 MG/DL Total Protein 7.6 6.4-8.2 GM/DL Albumin 4.4 3.2-4.5 GM/DL Amylase Level 20 L 25-125 U/L Lipase 5 L 8-78 U/L Human Chorionic Gonadotropin, Quant 961 H <5 MIU/ML Serum Test, Qualitative POSITIVE NEGATIVE Urine Color YELLOW Urine Clarity SLIGHTLY CLOUDY Urine pH 5 5-9 Urine Specific [place] 1.025 H 1.016-1.022 Urine Protein 1+ H NEGATIVE Urine Glucose (UA) NEGATIVE NEGATIVE Urine Ketones NEGATIVE NEGATIVE Urine Nitrite NEGATIVE NEGATIVE Urine Bilirubin NEGATIVE NEGATIVE Urine Urobilinogen NORMAL NORMAL MG/DL Urine Leukocyte Esterase 1+ H NEGATIVE Urine RBC (Auto) 2+ H NEGATIVE Urine RBC 2-5 H /HPF Urine WBC 2-5 /HPF Urine Squamous Epithelial Cells 25-50 H /HPF Urine Crystals NONE /LPF Urine Bacteria FEW H /HPF Urine Casts NONE /LPF Urine Mucus MODERATE H /LPF Urine Culture Indicated YES Urine Opiates Screen NEGATIVE NEGATIVE Urine Oxycodone Screen NEGATIVE NEGATIVE Urine Methadone Screen NEGATIVE NEGATIVE Urine Propoxyphene Screen NEGATIVE NEGATIVE Urine Barbiturates Screen NEGATIVE NEGATIVE Ur Tricyclic Antidepressants Screen NEGATIVE NEGATIVE Urine Phencyclidine Screen NEGATIVE NEGATIVE Urine Amphetamines Screen POSITIVE H NEGATIVE Urine Methamphetamines Screen POSITIVE H NEGATIVE Urine Benzodiazepines Screen NEGATIVE NEGATIVE Urine Cocaine Screen NEGATIVE NEGATIVE Urine Cannabinoids Screen NEGATIVE NEGATIVE It is noted that the drug screen is positive for both amphetamines and methamphetamines although the patient adamantly denies any drug use Vital Signs Date Time Temp Pulse Resp B/P (MAP) Pulse Ox O2 Delivery O2 Flow Rate FiO2 09/04/18 08:45 98.5 09/04/18 08:25 98.5 135 22 124/101 (109) 100 Room Air Physical exam Generally the patient is well-developed well-nourished white female in [id number] distress distress. HEENT exam is normal Neck is supple no lymphadenopathy no thyromegaly Abdomen is firm there is no significant rebound but she is guarding to some extent. There is no HSM Extremities show no clubbing cyanosis. There is no Homans sign. Pelvic exam is deferred Assessment and plan likely left ectopic that is a significant hemoperitoneum. We plan diagnostic laparoscopy with treatment as indicated for likely ectopic . Surgical risk complication recovery follow-up have been fully discussed. Patient accepts those risks and is ready to proceed. Likely ruptured left ectopic Allergies and Home Medications Allergies Coded Allergies: Penicillins (Verified Allergy, Unknown, 01/20/09) Home Medications Clindamycin Hcl 300 Mg Capsule, 1 EACH PO QID Prescribed by: LACI JOHNSON on 05/28/14 1358 Cyclobenzaprine HCl 10 Mg Tablet, 10 MG PO Q8H PRN for SPASMS Prescribed by: SLY AGUAYO on 01/23/17 1607 Hydrocodone Bit/Acetaminophen 1 Each Tablet, 1 EACH PO Q6H Prescribed by: SLY AGUAYO on 01/23/17 1607 Naproxen 500 Mg Tablet, 1 EACH PO TID PRN for PAIN FOR PAIN Prescribed by: LACI JOHNSON on 05/28/14 8578 Patient Home Medication List Home Medication List Reviewed: Yes MARC ANTHONY MD September 04, 2018 14:56
[2018-09-04] MEDS: LACTATED RINGERS 1,000 ML IV PRN ×2 (15:00→16:05)
[2018-09-04] MEDS ORDERED: MEPERIDINE (DEMEROL) INJ 100 MG/ML IM ONE ×2 (15:00)
[2018-09-04] MEDS ORDERED: KETOROLAC 30 MG/ML VIAL IVP ONE ×2 (15:00)
[2018-09-04] MEDS ORDERED: ONDANSETRON 4 MG/2 ML (SDV) Z0FRAN IVP PRN ×3 (15:00→16:45)
[2018-09-04] MEDS ORDERED: PROMETHAZINE INJ 25 MG/ML (PHENERGAN) AMP IM ONE ×2 (15:00)
[2018-09-04] MEDS ORDERED: OXYC1TAB87 PO (15:00)
[2018-09-04] MEDS ORDERED: oxyCODONE/APAP 5/325MG (PERCOCET 5) TABLET PO PRN ×2 (15:00→15:15)
--- NOTE | 2018-09-04 15:01 | Discharge Instructions ---
Discharge Instructions Discharge Medications New, Converted or Re-Newed RX: RX on Chart Patient Instructions Patient Instructions: As directed Return to The Hospital For: As directed Activity & Diet Discharge Diet: No Restrictions Activity as Tolerated: No Orders-Post D/C & Referrals Follow Up Appt: Call to make follow up appt. for patient in 1 weeks. Activity: Rest for 24 hours, than as tolerated. Wound Care: May remove Band-Aid tomorrow. Replace as desired. Keep incisions clean and dry. Wash daily with soap and water. Diet: As tolerated-Clear Liquids only if nauseated. Tomorrow, may shower or tub bathe as desired. No driving for 24 hours, no alcoholic beverages for 24 hours, and nothing per vagina (no tampons, douching, or intercourse) for 2 weeks. Patient to return to the clinic as soon as possible for: Temperature greater than 101F, Severe Pain, Foul discharge from incision or vagina, Excessive Bleeding (more than a period). MARC ANTHONY MD September 04, 2018 15:01
[2018-09-04] MEDS ORDERED: ceFAZolin INJECTION 1,000 MG ONE (15:04)
[2018-09-04] MEDS ORDERED: LACTATED RINGERS 1,000 ML IV PRN ×2 (15:05→15:15)
[2018-09-04] MEDS ORDERED: ROCURONIUM 10 MG/ML 5 ML SYRINGE IV ONE (15:06)
[2018-09-04] MEDS ORDERED: HYDROmorphone 2 MG/ML VIAL (DILAUDID) ONE (15:07)
[2018-09-04] MEDS ORDERED: KETOROLAC 30 MG/ML VIAL ONE (16:03)
[2018-09-04] MEDS ORDERED: GLYCOPYRROLATE 0.2 MG/ML (ROBINUL) 2 ML VIAL ONE (16:05)
[2018-09-04] MEDS ORDERED: NEOSTIGMINE 1 MG/ML 5 ML SYRINGE ONE (16:05)
[2018-09-04] MEDS ORDERED: HYDROmorphone 2 MG/ML VIAL (DILAUDID) IV ONE (16:45)
--- NOTE | 2018-09-05 01:11 | OPERATIVE REPORT ---
DATE OF SERVICE: 09/04/2018 PREOPERATIVE DIAGNOSIS: Likely ruptured left ectopic . POSTOPERATIVE DIAGNOSES: Likely ruptured left ectopic with apparent ruptured right ectopic and hemoperitoneum. OPERATIVE PROCEDURE: Laparoscopy for evacuation of hemoperitoneum and bilateral salpingectomies. OPERATIVE DESCRIPTION: With the patient in supine position under satisfactory general anesthesia, she was repositioned in dorsal lithotomy position in the [facility] and prepped and draped in usual fashion for abdominal and vaginal surgery. The urinary bladder was drained with a straight catheter. Weighted speculum was placed in posterior fornix of vagina, cervix exposed and grasped anteriorly with single tooth tenaculum. Uterus was sounded to 9 cm with uterine sound. Cervix was then serially dilated with Ashish dilators to accommodate a uterine manipulator, which was placed and the bulb filled with 6 mL of air. The tenaculum and speculum were removed. The patient brought in low dorsal lithotomy position. A 5 mm incision made in the patient's left upper quadrant and 12 mm incision in the inferior margin of the umbilicus and a 5 mm incision just superior to the umbilicus. All three incision sites were infiltrated with 0.25% Marcaine with epinephrine prior to incision. A Veress needle was placed in the left upper quadrant incision in the abdominal cavity. Correct placement was confirmed with a water drop test and the abdomen insufflated with 2.4 liters of warm dioxide. Veress needle was removed and a 5 mm Optiview laparoscopic port placed. It was immediately apparent that there was hemoperitoneum. The patient remained flat and the pelvis was examined. There was a large amount of clot in the pelvis. A 12 mm incision was placed under direct vision through the umbilical incision. The 5 mm port through the suprapubic incision. A suction canvas baster jumpbasting was then introduced and the large amount of blood and clot was evacuated from the pelvis. Between 400 to 500 mL of blood and clot was evacuated. There was no active bleeding at this point. It was evident that there was a ruptured right ectopic as it was adherent blood there. The right fallopian tube looked dilated and distorted. It also was torsed. There was a paratubal pedunculated cyst on the right where Morgagni that was adherent to the omentum and wrapped in the torsion. Left fallopian tube was examined. It was somewhat dilated. With the degree of hemoperitoneum, I really suspected a right ruptured ectopic, but the decision was made to go ahead with both of her fallopian tubes to be removed as this was the patient's second ectopic and she had had her tubes tied by her description twice already as well. The Endo GI was loaded and brought into the umbilical port. The right fallopian tube was grasped and elevated. The Endo GI was placed across the right fallopian tube, removing the distal portion entirely that remained after her tubal sterilization. That was labeled appropriately and sent to pathology for permanent section. The pedunculated tubal cyst was resected from the omentum and sent to pathology labeled separately as well. The left fallopian tube was treated in the same manner. It was grasped and elevated. The Endo-CHAU was placed across the fallopian tube and the balance of the distal fallopian tube was removed as well. Each of the fallopian tubes were placed in an Endobag and brought out and labeled appropriately and sent to pathology. The pelvis was irrigated, examined for hemostasis. There was minimal bleeding at the dissection sites. This was touched with electrocautery to affect hemostasis. With hemostasis complete and assured no remaining abnormal pathology, the procedure was terminated. The operative instruments removed under direct vision as were the ports. The abdomen was evacuated of the insufflating gas in the process of removing the ports. The skin incisions were closed with interrupted sutures of 3-0 nylon after closing the fascia of the infraumbilical incision with a [id number] suture of 2-0 Vicryl. Speculum replaced in the vagina after removing the uterine manipulator. There was no bleeding from the puncture sites and minimal bleeding from the cervical os. The patient's bladder was actually entered at this point, now as her bladder had appeared relatively full during the procedure and this was devoid postoperative discomfort with a full bladder. Sponge and needle counts were correct. Estimated blood loss was again probably around 500 mL total. Most of this was the evacuation of the hemoperitoneum. The patient was now uneventfully awakened from general anesthesia and transferred to recovery room in stable condition with plans for discharge home PAR. Job ID: [id number] DocumentID: [id number] Dictated Date: 09/04/2018 16:16:31 Cost Control Supervisor Date: 09/05/2018 01:10:13 Dictated By: MARC ANTHONY MD
--- NOTE | 2018-09-05 10:05 | Anesthesia-General Post-Op ---
General Patient Condition Mental Status/LOC: Same as Preop Cardiovascular: Satisfactory Nausea/Vomiting: Absent Respiratory: Satisfactory Pain: Controlled Complications: Absent Post Op Complications Complications None Follow Up Care/Instructions Patient Instructions None needed. Anesthesia/Patient Condition Patient Condition Patient is doing well, no complaints, stable vital signs, no apparent adverse anesthesia problems. No complications reported per nursing. D/C home [place] [facility] [place] Criteria: Yes MOE DURON CRNA September 05, 2018 10:05
== END 2018-09-04 18:30 | disposition home or self-care (01) ==
LOC: EDUNIT# 07:21 → ER 07:22 → SDC 15:09
PROVIDERS: ATTEND Obstetrics & Gynecology
DX: O00.101 Right tubal pregnancy without intrauterine pregnancy (principal); N83.521 Torsion of right fallopian tube; K66.1 Hemoperitoneum; N83.8 Other noninflammatory disorders of ovary, fallopian tube and broad ligament; R56.9 Unspecified convulsions; J45.909 Unspecified asthma, uncomplicated; F17.210 Nicotine dependence, cigarettes, uncomplicated; F15.90 Other stimulant use, unspecified, uncomplicated; E66.9 Obesity, unspecified; Z68.35 Body mass index [BMI] 35.0-35.9, adult; Z79.899 Other long term (current) drug therapy
CPT/HCPCS: 36415; 76705; 76817; 80053; 80306; 81000; 82150; 83690; 83735; 84484; 84702; 84703; 85025; 86141; 86850; 86900; 86901; 86920; 87088

== ENCOUNTER 2019-10-04 05:33 | Outpatient (RCR) | payer MEDICAID ==
[~2019-10-04] VITALS: Ht 175.3 cm; Wt 112.7 kg
[~2019-10-04 05:33] MED LIST changes: +OXYC1TAB87 PO
[2019-10-06] MEDS ORDERED: DOCU-143 PO (08:16)
[2019-10-06] MEDS ORDERED: IBUP-1780 PO (08:16)
[2019-10-06] MEDS ORDERED: OXYC1TAB87 PO (08:16)
== END 2019-10-04 15:20 | disposition home or self-care (01) ==
LOC: PREOP 05:33
PROVIDERS: ATTEND Obstetrics & Gynecology
DX: Z01.818 Encounter for other preprocedural examination (principal); Z01.812 Encounter for preprocedural laboratory examination; Z20.828 Contact with and (suspected) exposure to other viral communicable diseases
CPT/HCPCS: 87635

== ENCOUNTER 2019-10-06 10:37 | Day surgery (SDC) | payer MEDICAID ==
[~2019-10-06] VITALS: Ht 175.3 cm; Wt 112.7 kg
[2019-10-06] VITALS (10 sets, daily range): BP systolic 97–122; BP diastolic 56–89
--- NOTE | 2019-10-06 08:13 | Progress Note-Pre Operative ---
Pre-Operative Progress Note H&P Reviewed The H&P was reviewed, patient examined and no changes noted. Date Seen by Provider: Oct 06, 2019 Time Seen by Provider: 12:01 Date H&P Reviewed: Oct 06, 2019 Time H&P Reviewed: 12:02 Pre-Operative Diagnosis: DUB/CPP/Menorrhagia MARC ANTHONY MD Oct 06, 2019 08:13
--- NOTE | 2019-10-06 08:14 | Progress Note-Post Operative ---
Post-Operative Progess Note Surgeon (s)/Celery Cutter (s) Surgeon MARC ANTHONY MD Celery Cutter: Emma GARCIA Pre-Operative Diagnosis DUB/CPP/Menorrhagia Post-Operative Diagnosis same Procedure & Operative Findings Date of Procedure 10/06/19 Procedure Performed/Findings TLH/BS/and cystoscopy Anesthesia Type GETA Estimated Blood Loss Estimated blood loss (mL): Minimal Specimens/Packing Specimens Removed TLH/BS MARC ANTHONY MD Oct 06, 2019 08:14
--- NOTE | 2019-10-06 08:18 | Discharge Inst-Surgical ---
Discharge Inst-Surgical Depart Medication/Instructions New, Converted or Re-Newed RX: RX on Chart Consults/Follow Up Patient Instructions: as directed Orders & Referrals Follow Up Appt: RTC on Tuesday October 08, 2019 at 0930 AM for staple removal Call to make follow up appt. for patient in 4 weeks. Activity: Rest for 24 hours, than as tolerated. Wound Care: May remove Band-Aid tomorrow. Replace as desired. Keep incisions clean and dry. Wash daily with soap and water. Please call in RX to patient pharmacy. Diet: As tolerated-Clear Liquids only if nauseated. shower or tub bathe as desired. No driving for 24 hours, no alcoholic beverages for 24 hours, and nothing per vagina (no tampons, douching, or intercourse) for 8 weeks. Patient to return to the clinic as soon as possible for: Temperature greater than 101F, Severe Pain, Foul discharge from incision or vagina, Excessive Bleeding (more than a period). Activity Activity as Tolerated: No Diet Discharge Diet: No Restrictions MARC ANTHONY MD Oct 06, 2019 08:17
[~2019-10-06 10:37] MED LIST changes: +DOCU-143 PO; +IBUP-1780 PO
[2019-10-06] MEDS ORDERED: LACTATED RINGERS 1,000 ML IV PRN (10:49)
[2019-10-06] MEDS ORDERED: LEVOFLOXACIN 250 MG/50 ML IVPB 50 ML IV ONE (11:00)
[2019-10-06 11:16] LABS: AMPHETAMINE SCREEN, URINE NEGATIVE (NEGATIVE); BARBITURATE SCREEN URINE NEGATIVE (NEGATIVE); BENZODIAZEPINES SCREEN URINE NEGATIVE (NEGATIVE); CANNABINOID SCREEN, URINE POSITIVE (NEGATIVE); COCAINE SCREEN URINE NEGATIVE (NEGATIVE); METHADONE STAT NEGATIVE (NEGATIVE); METHAMPHETAMINE SCREEN URINE S NEGATIVE (NEGATIVE); OPIATE SCREEN URINE NEGATIVE (NEGATIVE); OXYCODONE STAT NEGATIVE (NEGATIVE); PROPOXYPHENE STAT NEGATIVE (NEGATIVE); TRICYCLIC ANTIDEPRESSANTS SCRE NEGATIVE (NEGATIVE)
[2019-10-06 11:37] LABS: BASOPHILS % (AUTO) 0 % (0-10); EOSINOPHILS # (AUTO) 0.2 10^3/uL (0.0-0.3); EOSINOPHILS % (AUTO) 3 % (0-10); HEMATOCRIT 41 % (35-52); HEMOGLOBIN 13.8 G/DL (11.5-16.0); LYMPHOCYTES # (AUTO) 2.6 X 10^3 (1.0-4.0); LYMPHOCYTES % (AUTO) 35 % (12-44); MEAN CORPUSCULAR HEMOGLOBIN 31 PG (25-34); MEAN CORPUSCULAR HGB CONC 34 G/DL (32-36); MEAN CORPUSCULAR VOLUME 90 FL (80-99); MEAN PLATELET VOLUME 9.8 FL (7.4-10.4); MONOCYTES # (AUTO) 0.4 X 10^3 (0.0-1.0); MONOCYTES % (AUTO) 6 % (0-12); NEUTROPHILS # (AUTO) 4.2 X 10^3 (1.8-7.8); NEUTROPHILS % (AUTO) 56 % (42-75); PLATELET COUNT 225 10^3/uL (130-400); RED CELL DISTRIBUTION WIDTH 13.8 % (10.0-14.5); WHITE BLOOD COUNT 7.4 10^3/uL (4.3-11.0)
[2019-10-06] MEDS ORDERED: fentaNYL INJECTION 100 MCG/2 ML AMP ONE ×2 (11:42→13:36)
[2019-10-06] MEDS ORDERED: MIDAZOLAM 2 MG/2 ML (VERSED) VIAL ONE (11:42)
[2019-10-06] MEDS ORDERED: LIDOCAINE PF 2% 5 ML (XYLOCAINE) VIAL ONE (11:42)
[2019-10-06] MEDS ORDERED: ONDANSETRON 4 MG/2 ML (SDV) Z0FRAN ONE (11:42)
[2019-10-06] MEDS ORDERED: proPOfol 200 MG/20 ML (DIPRIVAN) VIAL IV ONE (11:42)
[2019-10-06] MEDS ORDERED: ROCURONIUM 10 MG/ML 5 ML SYRINGE IV ONE (11:43)
[2019-10-06] MEDS ORDERED: DEXAMETHASONE 10 MG/ML (DECADRON) 1 ML VIAL ONE (11:43)
[2019-10-06] MEDS ORDERED: BUP/EPI 0.5% 1:200,000 (SENSORCAINE) 30 ML VIAL ONE (11:48)
[2019-10-06] MEDS ORDERED: SEVOFLURANE (ULTANE) 15 ML INHAL SOLN ONE ×4 (11:48→14:18)
[2019-10-06] MEDS ORDERED: RT-ALBUINH INH (12:33)
[2019-10-06] MEDS ORDERED: KETOROLAC 30 MG/ML VIAL ONE (14:12)
[2019-10-06] MEDS: KETOROLAC 30 MG/ML VIAL IVP SCH ×2 (14:25→19:52)
[2019-10-06] MEDS ORDERED: MEPERIDINE (DEMEROL) INJ 100 MG/ML IM PRN (14:30)
[2019-10-06] MEDS ORDERED: ONDANSETRON 4 MG/2 ML (SDV) Z0FRAN IVP PRN ×2 (14:30→14:45)
[2019-10-06] MEDS ORDERED: PROMETHAZINE INJ 25 MG/ML (PHENERGAN) AMP IM PRN (14:30)
[2019-10-06] MEDS ORDERED: HYDROmorphone 2 MG/ML VIAL (DILAUDID) ONE (14:30)
[2019-10-06] MEDS ORDERED: NEOSTIGMINE 3 MG/3 ML VIAL ONE (14:41)
[2019-10-06] MEDS ORDERED: GLYCOPYRROLATE 0.2 MG/ML (ROBINUL) 2 ML VIAL ONE (14:41)
[2019-10-06] MEDS ORDERED: morphine INJ 10 MG/ML 1ML (SYR OR VIAL) IVP ONE (14:45)
[2019-10-06] MEDS ORDERED: HYDROmorphone 2 MG/ML VIAL (DILAUDID) IV ONE (14:45)
[2019-10-06] MEDS ORDERED: MEPERIDINE (DEMEROL) INJ 50 MG/ML IVP ONE (14:45)
[2019-10-06] MEDS ORDERED: PROMETHAZINE INJ 25 MG/ML (PHENERGAN) AMP IVP ONE (14:45)
[2019-10-06] MEDS ORDERED: PROMETHAZINE INJ 25 MG/ML (PHENERGAN) AMP ONE (15:00)
--- NOTE | 2019-10-06 15:30 | NUR ---
Pt transferred to room 306 via bed with PACU staff @ side. report received from MARIA ELENA Austin.
--- NOTE | 2019-10-06 15:34 | NUR ---
initial assessment completed, see interventions for further. lapsites x3 D/I. richardson to DD with clear, yellow urine noted in chamber. SCD's to LE's. pt snoring, will spont. awake reporting pain. s/o @ side.
[2019-10-06] MEDS ORDERED: CATHETER FLUSH 10 ML SYR IV PRN (16:30)
[2019-10-06] MEDS: D5 LR IV SOLUTION 1,000 ML IV SCH (16:30)
--- NOTE | 2019-10-06 18:30 | NUR ---
eating regular diet.
[2019-10-06] MEDS: oxyCODONE/APAP 10/325MG (PERCOCET 10) TABLET PO PRN (18:39)
--- NOTE | 2019-10-06 18:40 | NUR ---
pt requesting richardson catheter removal. 125cc clear, yellow urine noted. assisted up to BR. voided, missed collection hat. mikhail-care offered. v-pad and panties in place.
--- NOTE | 2019-10-06 19:16 | NUR ---
Report given to next shift.
--- NOTE | 2019-10-06 19:18 | OPERATIVE REPORT ---
DATE OF SERVICE: 10/06/2019 PREOPERATIVE DIAGNOSES: Chronic pelvic pain, dysfunctional uterine bleeding and menorrhagia. POSTOPERATIVE DIAGNOSES: Chronic pelvic pain, dysfunctional uterine bleeding and menorrhagia. OPERATIVE PROCEDURE: Total laparoscopic hysterectomy with bilateral proximal salpingectomies as well as adhesiolysis and cystoscopy. OPERATIVE DESCRIPTION: With the patient in the supine position under satisfactory general anesthesia, she was repositioned in the dorsal lithotomy position in the [facility] and prepped and draped in the usual fashion for abdominal and vaginal surgery using robotic assistance. Weighted speculum placed in posterior fornix of vagina, cervix exposed and grasped anteriorly with single tooth tenaculum. Uterus was sounded to 9 cm with uterine sound. The cervix was then serially dilated with Ashish dilators allowing for placement of a Kendra two manipulator using a 6 mm x 8 cm uterine probe and a 25 mm colpotomy ring. Sutures of #1 Vicryl placed at 3 and 9 o'clock position of the cervix to affix the uterus to the manipulator. The patient brought in low dorsal lithotomy position after Kraft catheter was placed in the urinary bladder. A 12 mm incision was made 9 cm superior to the umbilicus after infiltrating that area with 0.5% Marcaine with epinephrine. A Veress needle was then placed. Correct placement was confirmed with water drop test and the abdomen inflated with 2.4 liters of carbon dioxide. Veress needle was removed and a 12 mm Optiview laparoscopic port was placed. The abdominal wall was transilluminated. Ports of 8 mm were placed 9 cm lateral to the umbilicus approximately 3 cm superior to the umbilicus on each side. The infant port sites were infiltrated with 0.25% Marcaine with epinephrine prior to incision. With the patient now in Trendelenburg, the bowel spill out of the pelvis. The operative console was advanced on the patient and docked and operative instruments were placed in the right and left lateral ports and I retired to the console. At the da Scottie console using the vessel sealer on the right and a bipolar fenestrated grasper on the left, the pelvis was first examined. Both tubes were surgically absent. Both ureters were seemed to peristalse. Both ovaries appeared normal. It appeared the patient likely has endometriosis/adenomyosis. There were some adhesions of the sigmoid to the left pelvic brim. These were lysed bluntly. The laparoscope was rotated. The appendix was identified. It was a normal vermiform appendix. Laparoscope was brought back to the pelvis. The uterus was elevated and brought to the patient's left. The proximal right fallopian tube was then divided across the mesosalpinx to ensure that the balance of the fallopian tube left with the uterus. The uteroovarian pedicle was then clamped, cauterized and divided with the vessel sealer as was the round ligament, the broad ligament, and cardinal ligament on the right. Same procedure was performed on the left, allowing for removal of both proximal fallopian tubes eventually with the uterus. Anterior lower uterine segment peritoneum was exposed and then divided using a monopolar shear on the right. The vaginal wall was divided over the colpotomy ring, exposing the colpotomy ring at 12 o'clock position. That incision was continued circumferentially until the entire colpotomy ring was exposed, allowing for removal of the uterus with the proximal fallopian tubes still attached through the vagina. The vaginal cuff was closed with a single suture of V-Loc barbed suture starting from the right angle and continuing all the way across the vaginal cuff and ensuring inclusion of the uterine vessel pedicles bilaterally. The last two stitches were used to bring the bladder peritoneum back down on the vaginal cuff as well. Hemostasis was complete. Good reapproximation was achieved. Both ureters were seemed to peristalse. There was no bleeding, no abnormal pathology, the laparoscopic portion of this procedure at this point was halted. The operative instruments were removed under direct vision as were the ports. The abdomen was evacuated of the insufflating gas in the process of removing the ports. The skin incisions were stapled. The fascia at the supraumbilical incision was closed with [id number] suture of 2-0 Vicryl. The patient was placed in dorsal lithotomy position. Cystoscope was performed using LR as a distending medium, the bladder wall was completely intact. Both ureter orifices were seen and free efflux was noted bilaterally. The cystoscope was then removed. Kraft catheter was replaced to dependent drainage. Sponge and needle counts were correct. Blood loss was minimal and the patient was uneventfully now awakened from her general anesthesia and transferred to recovery room in stable condition. Job ID: [id number] DocumentID: [id number] Dictated Date: 10/06/2019 14:20:20 Director Physical Date: 10/06/2019 19:17:26 Dictated By: MARC ANTHONY MD
[2019-10-07 00:14] VITALS: BP 128/75
[2019-10-07] MEDS: oxyCODONE/APAP 10/325MG (PERCOCET 10) TABLET PO PRN ×2 (00:14→07:54)
[2019-10-07] MEDS: D5 LR IV SOLUTION 1,000 ML IV SCH (00:42)
[2019-10-07 04:22] VITALS: BP 118/76
[2019-10-07] MEDS: KETOROLAC 30 MG/ML VIAL IVP SCH (04:22)
--- NOTE | 2019-10-07 06:50 | Anesthesia-General Post-Op ---
General Patient Condition Mental Status/LOC: Same as Preop Cardiovascular: Satisfactory Nausea/Vomiting: Absent Respiratory: Satisfactory Pain: Controlled Complications: Absent Post Op Complications Complications None Follow Up Care/Instructions Patient Instructions None needed. Anesthesia/Patient Condition Patient Condition Patient is doing well, no complaints, stable vital signs, no apparent adverse anesthesia problems. No complications reported per nursing. [place] [facility] [place]: Yes MOE DURON CRNA Oct 07, 2019 06:50
--- NOTE | 2019-10-07 07:39 | Progress Note ---
Standard Progress Note Progress Notes/Assess & Plan Date Seen by a Provider: Oct 07, 2019 Time Seen by a Provider: 07:37 Progress/Assessment & Plan This patient is without complaint. She is ambulating, voiding, tolerating oral intake well has good pain control. Vital Signs Date Time Temp Pulse Resp B/P (MAP) Pulse Ox O2 Delivery O2 Flow Rate FiO2 10/07/19 04:22 36.8 81 18 118/76 (90) 96 Room Air 10/07/19 00:14 36.4 93 18 128/75 (92) 96 Room Air 10/06/19 19:52 36.5 102 18 117/78 (91) 94 Room Air 10/06/19 15:34 36.1 60 18 97/61 (73) 97 Nasal Cannula 2.00 2.00 10/06/19 15:30 36.4 18 106/58 (74) 96 Nasal Cannula 2 10/06/19 15:30 Nasal Cannula 2 10/06/19 15:20 18 118/76 (90) 96 Nasal Cannula 2 10/06/19 15:18 Nasal Cannula 2 10/06/19 15:12 Room Air 10/06/19 15:10 18 102/56 (71) 99 Room Air 10/06/19 15:00 OxyMask 3 10/06/19 15:00 18 112/82 (92) 98 OxyMask 3 10/06/19 14:50 18 113/75 (88) 100 OxyMask 6 10/06/19 14:45 OxyMask 6 10/06/19 14:40 18 122/69 (86) 98 OxyMask 6 10/06/19 14:32 OxyMask 6 10/06/19 14:32 36.3 14 119/89 (99) 99 OxyMask 6 10/06/19 10:40 35.8 74 18 105/62 (76) 97 Room Air I & O 10/07/19 07:00 Intake Total 1790 ml Output Total 1925 ml Balance -135 ml Vital signs are stable. Patient is afebrile. The abdomen is benign. The surgical dressings are clean and dry. Extremities show no clubbing or cyanosis. There is no Homans sign. Assessment and plan postoperative day number 1 doing well. Plan is for discharge home with follow-up in clinic Final Diagnosis Chronic pelvic pain and dysfunctional uterine bleeding and menorrhagia GABRIELLE,MARC G MD Oct 07, 2019 07:39
[2019-10-07 07:54] VITALS: BP 132/78
--- NOTE | 2019-10-07 07:54 | NUR ---
initial shift assessment completed, see interventions for further. lapsites x3 D/I. bruising noted around incision site.
--- NOTE | 2019-10-07 08:00 | NUR ---
Dr. Robledo here to see pt. dismissal orders received.
--- NOTE | 2019-10-07 08:51 | NUR ---
Kathy and Moe Rx called into [facility] per pt's request.
[2019-10-07] MEDS ORDERED: IBUPROFEN 800 MG (MOTRIN) TAB PO ONE (08:54)
--- NOTE | 2019-10-07 08:59 | NUR ---
dismissal instructions given, reports understanding. reviewed follow up appointments, Rx's and administration schedule. signature page signed, place on chart.
[2019-10-07] MEDS ORDERED: DOCUSATE SODIUM 100 MG (COLACE) CAP PO SCH (09:00)
--- NOTE | 2019-10-07 09:05 | NUR ---
pt ambulated to private vehicle with this RN and s/o @ side. pt stable with no sx's of distress noted.
[2019-10-07] MEDS ORDERED: IBUPROFEN 800 MG (MOTRIN) TAB PO SCH (14:30)
== END 2019-10-07 09:05 | disposition home or self-care (01) ==
LOC: SDC 10:37 → WS 15:30 → SDC 10-07 09:05
PROVIDERS: ATTEND Obstetrics & Gynecology
DX: N92.0 Excessive and frequent menstruation with regular cycle (principal); G89.29 Other chronic pain; R10.2 Pelvic and perineal pain; N93.8 Other specified abnormal uterine and vaginal bleeding; J45.909 Unspecified asthma, uncomplicated; F17.210 Nicotine dependence, cigarettes, uncomplicated; Z83.3 Family history of diabetes mellitus; Z88.0 Allergy status to penicillin
CPT/HCPCS: 36415; 80306; 84443; 84703; 85025; 86850; 86900; 86901; 87081; 88307